=== PATIENT | male | born 1945 | race Caucasian/White ===

== ENCOUNTER 2017-07-20 09:34 | Day surgery (SDC) | payer MEDICARE, SELFPAY ==
[2017-07-20] VITALS (7 sets, daily range): BP systolic 95–127; BP diastolic 51–72; PULSE 62–80; RESP 16–20; TEMP 36.2–36.6; O2SAT 98–100; BMI 25.1
--- NOTE | 2017-07-20 11:05 | COLBX_PTH ---
PATIENT: TRENTON ALVAREZ LOC: EN U#:[id number] AGE/SX: 72/M ROOM: RE07/20/[address]: Dr. Chris Franks MD : 1945 BED: DIS: 07/20/2017 SPEC #: [id number] RECD: 07/20/17 12:15 STATUS: MORRO LEODAN #: [id number] TRICIA: 07/20/17 11:[address]: Chris Franks DEPT: SURGICAL PATHOLOGY RECD BY: Booker Mclaughlin ENTERED: 07/20/17 12:45 SP TYPE: COLON BX OTHR DR: Dr. Isabella Palma MD Tissues: Transverse colon Procedures: Surgery Specimen Level IV HEADER OPERATION: Colonoscopy PRE-OP DIAGNOSIS: Rectal hemorrhage TISSUE SUBMITTED: Proximal transverse biopsy MICROSCOPIC DIAGNOSIS Proximal transverse colon, biopsy: Hyperplastic polyp. SJ:jie 07/21/17 MICROSCOPIC DESCRIPTION Slides are reviewed. GROSS DESCRIPTION Received in fixative is one container labeled with the patient's name and designated proximal transverse biopsy. The specimen consists of multiple irregular fragments of light saldana soft tissue that in aggregate measure 0.5 x 0.5 x 0.1 cm. The specimen is totally submitted in one cassette. / SJ:jie 07/20/17 TC:1 CPT: 48676
--- NOTE | 2017-07-20 11:41 | PCM.OPRPT ---
Problem List (1) Epigastric pain Status: Acute (2) History of gastroesophageal reflux (GERD) Status: Chronic (3) Rectal bleeding Status: Acute Report of Operation Date of Procedure: 07/20/17 Pre-Operative Diagnosis: Epigastric pain, rectal bleeding, history of gastroesophageal reflux disease Post-Operative Diagnosis: Same Surgery/Procedure Performed:: 91109 esophagogastroduodenoscopy. 24217 colonoscopy with biopsy Type of Anesthesia:: MAC Anesthesiologist: Brooks Bosch Description of Procedure: Patient was brought into the endoscopy unit. Back of his throat was sprayed with Cetacaine spray. A bite-block was placed. He was placed in the left lateral decubitus position. Graded anesthesia was given. The scope was inserted in the back of the oropharynx and directed down through the esophagus into the stomach and into the duodenum without difficulty operative findings: 1. Duodenum: Normal appearance no mass lesions no ulcerations no bleeding. 2. Stomach: Normal appearance no mass lesions no ulcerations 3. Esophagus: I read previously where he had an esophagogastroduodenoscopy with biopsy at the distal esophagus my scope was able to traverse this without any difficulty and I did not feel that there was a need to do a dilatation at this time. I took numerous pictures the mucosal all look normal it was slightly friable when I went through it but the scope easily traversed at numerous times. The scope was then inserted into the rectum and directed through the sigmoid colon, descending colon, transverse colon, ascending colon, to the cecum. Operative findings: 1. Cecum: Normal appearance no mass lesions normal ileocecal valve. 2. Ascending colon: Normal appearance no mass lesions. 3. Transverse colon and the proximal transverse colon there was a very sessile polyp which I did not feel comfortable trying to remove I injected the area with Ann ink I biopsied it and then marked with a metal clip so that I could get a x-ray of his abdomen when I was done. 4. Descending colon: Normal appearance no mass lesions. 5. Sigmoid colon: Normal appearance no mass lesions scattered diverticuli were identified 6. Rectum: Normal appearance no mass lesions retroflexion did show some internal hemorrhoids it did look like they had been actively bleeding. The scope was withdrawn digital rectal exam was performed showing no masses within the anus and a smooth prostate with no nodules. I am going to obtain an abdominal x-ray on the patient. If the biopsy results are benign and probably going to send him off to have injection of saline and shaving the biopsy of this sessile polyp it was malignant then we will plan for a surgical resection. - Admit VTE Documentation VTE Present on Admission: No VTE Mechan Device Prophylaxis: None VTE Pharm Prophylaxis ordered?: No Reason prophylaxis not ordered:: Treatment Not Indicated
--- NOTE | 2017-07-20 12:25 | RAD_ITS ---
STUDY: X-RAY - ABDOMEN/PELVIS REASON FOR EXAM: Male, 72 years old. A 30 day clip was placed in transverse colon. Abdominal distention. TECHNIQUE: AP supine and upright views of the abdomen and pelvis. COMPARISON: None. FINDINGS: There is a surgical clip at the level of the hepatic flexure of the large bowel. There is only mild gaseous distention of the large bowel. There is no significant stool burden. In the upright views there are several air-fluid levels in the ascending colon. The small bowel is largely decompressed with only minimal gas, no distention and no apparent air-fluid levels. No free air. Multilevel lumbar degenerative disc disease with mild scoliosis. Right total breast plasty. RAD/Abd Inc Decub and/or Erect IMPRESSION: Multiple stacked air-fluid levels in the ascending colon proximal to the surgical clip. This likely reflects stasis. The stasis may be functional. Dysmotility/ileus. There is only small amount of gas in the distal large bowel and there is no significant stool burden. There is no visible mechanical obstruction. The small bowel is unremarkable. There is no specific evidence of bowel perforation. No visible free air. Electronically Signed: Booker Finn, at 13:11 EDT Tel , Service support ,
== END 2017-07-20 12:01 | disposition home or self-care (01) ==
LOC: EN 09:35 → AC 09:37
PROVIDERS: Family Provider Internal Medicine; PCP Internal Medicine; Visit Provider Surgery
PROC: 0DJD8ZZ Inspection of Lower Intestinal Tract, Via Natural or Artificial Opening Endoscopic (ICD-10-PCS; CPT 45378; principal; 2017-07-20 10:55)
DX: K63.5 Polyp of colon (principal); K64.8 Other hemorrhoids; K21.9 Gastro-esophageal reflux disease without esophagitis; D64.9 Anemia, unspecified; M1A.9XX0 Chronic gout, unspecified, without tophus (tophi); M54.5 Low back pain; G89.29 Other chronic pain; Z85.828 Personal history of other malignant neoplasm of skin; Z86.010 Personal history of colon polyps; Z79.899 Other long term (current) drug therapy
CPT/HCPCS: 43235; 45380; 45381; 74019; 88305; J7120; A4648

== ENCOUNTER 2017-10-23 09:57 | Day surgery (SDC) | payer MEDICARE, SELFPAY ==
--- NOTE | 2017-10-23 | COLBX_PTH ---
PATIENT: TRENTON ALVAREZ LOC: EN U#:[id number] AGE/SX: 72/M ROOM: RE10/23/[address]: Dr. Chris Franks MD : 1945 BED: DIS: 10/23/2017 SPEC #: [id number] RECD: 10/23/17 14:32 STATUS: MORRO LEODAN #: [id number] TRICIA: 10/23/17 00:[address]: Chris Franks DEPT: SURGICAL PATHOLOGY RECD BY: Carson Dimas ENTERED: 10/23/17 14:33 SP TYPE: COLON BX OTHR DR: Dr. Isabella Palma MD Tissues: A - COLON BIOPSY B - Sigmoid colon biopsy Procedures: Surgery Specimen Level IV HEADER OPERATION: Colonoscopy (MAC) PRE-OP DIAGNOSIS: History of polyp TISSUE SUBMITTED: A - Hepatic flexure polyp, B ? Sigmoid polyp biopsy MICROSCOPIC DIAGNOSIS A. Colon polyp at hepatic flexure, biopsy: Fragments of tubular adenoma. B. Sigmoid colon polyp, biopsy: Fragments of tubular adenoma. AM:riley 10/26/17 MICROSCOPIC DESCRIPTION Slides are reviewed. GROSS DESCRIPTION A - Received is one container labeled with the patient name and designated splenic flexure polyp. The specimen consists of multiple irregular fragments of light saldana soft tissue that in aggregate measure 0.5 x 0.3 x 0.1 cm. The specimen is totally submitted in one cassette. B - Received is one container labeled with the patient name and designated sigmoid polyp biopsy. The specimen consists of multiple irregular fragments of light saldana soft tissue that in aggregate measure 0.6 x 0.6 x 0.1 cm. The specimen is totally submitted in one cassette. /AM:riley 10/23/17 TC: 5 CPT: 24125 x2
[2017-10-23 10:32] VITALS: BP 110/65; PULSE 65; RESP 16; TEMP 36.6; O2SAT 100; BMI 24.5
--- NOTE | 2017-10-23 12:24 | PCM.OPRPT ---
Problem List (1) Hyperplastic polyp of transverse colon Status: Acute Report of Operation Date of Procedure: 10/23/17 Pre-Operative Diagnosis: k63.5 hyperplastic polyp of the transverse colon at the hepatic flexure Post-Operative Diagnosis: Same Surgery/Procedure Performed:: Colonoscopy with ERBY elevation of hyperplastic polyp and snare polypectomy Type of Anesthesia:: MAC Description of Procedure: Patient was brought into the operating room and placed in the supine position. Under excellent MAC anesthetic the colonoscope was inserted into the rectum and directed through the sigmoid colon, descending colon, transverse colon, descending colon, to the cecum. As I withdrew the scope I came to the area the hepatic flexure where I had injected ink which was still present and I was able to identify a hyperplastic polyp I was quite surprised how small it had gotten since the last time I biopsied it. I used the early device injected saline into the subcutaneous tissues. I placed the snare cautery around this area and removed entirely and in the process nearly ablated the tissue completely. I was surprised that there was another hyperplastic polyp right near this 1 that I actually did not see the first time. I removed it with biopsy forceps. As I withdrew the scope I came to the sigmoid colon where I found another hyperplastic polyp and I ablated this with biopsy forceps. The rest of the colon appeared normal there was no new lesions identified other than what is been dictated above. The patient tolerated the procedure well. He will need another colonoscopy in 3 years. - Admit VTE Documentation VTE Present on Admission: No VTE Mechan Device Prophylaxis: None VTE Pharm Prophylaxis ordered?: No Reason prophylaxis not ordered:: Treatment Not Indicated
[2017-10-23 12:26] VITALS: BP 110/65; BP 97/54; PULSE 68; RESP 16; TEMP 36.3; O2SAT 100
[2017-10-23 12:30] VITALS: BP 101/43; BP 110/65; PULSE 63; RESP 16; O2SAT 100
[2017-10-23 12:35] VITALS: BP 100/55; BP 110/65; PULSE 62; RESP 18; O2SAT 100
[2017-10-23 12:41] VITALS: BP 106/44; BP 110/65; PULSE 62; RESP 16; TEMP 37; O2SAT 100
[2017-10-23 13:10] VITALS: BP 110/65
== END 2017-10-23 13:08 | disposition home or self-care (01) ==
LOC: EN 09:57 → AC 09:58
PROVIDERS: Family Provider Internal Medicine; PCP Internal Medicine; Visit Provider Surgery
PROC: 0DJD8ZZ Inspection of Lower Intestinal Tract, Via Natural or Artificial Opening Endoscopic (ICD-10-PCS; CPT 45378; principal; 2017-10-23 10:55)
DX: D12.3 Benign neoplasm of transverse colon (principal); D12.5 Benign neoplasm of sigmoid colon; M10.9 Gout, unspecified; K21.9 Gastro-esophageal reflux disease without esophagitis; D64.9 Anemia, unspecified; Z85.828 Personal history of other malignant neoplasm of skin; Z79.899 Other long term (current) drug therapy
CPT/HCPCS: 45380; 88305; J7120; A4216; J1610

== ENCOUNTER 2018-02-07 08:35 | Inpatient (IN) | payer MEDICARE, SELFPAY ==
[2018-02-07] VITALS (8 sets, daily range): BP systolic 126–152; BP diastolic 60–81; PULSE 76–119; RESP 16–17; TEMP 36.4–37.2; O2SAT 96–100; BMI 24.9; BMI 24.7; BMI 24.8
--- NOTE | 2018-02-07 08:49 | CT_ITS ---
STUDY: CT ABDOMEN AND PELVIS WITHOUT CONTRAST REASON FOR EXAM: Male, 72 years old. Abdominal pain, nausea and vomiting RADIATION DOSAGE (If Supplied By Facility): CTDIvol = ( 13.14 ) mGy, DLP = ( 699.51 ) mGycm TECHNIQUE: Transaxial images were obtained from the dome of the diaphragm to the symphysis pubis without oral contrast, and without intravenous contrast. Sagittal and coronal images were reconstructed. Individualized dose optimization techniques were used for this CT. COMPARISON: None. FINDINGS: The visualized lung bases are unremarkable. The visualized portions of the heart are within normal limits. Normal liver. Normal gallbladder and extrahepatic biliary system. Normal spleen. There is subtle enlargement of the head of the pancreas. Additionally, the head of the pancreas is poorly defined and there is subtle peripancreatic inflammation. A mass in the head of the pancreas cannot be excluded and further evaluation recommended with MRI or CT with IV contrast. Normal bilateral adrenal glands. No obstructive uropathy, nonobstructing right nephrolithiasis noted. Normal visualized stomach. Normal small intestine. There are multiple colonic diverticula consistent with diverticulosis. There is non-visualization of the appendix. Normal abdominal aorta. Normal inferior vena cava. Normal retroperitoneum. Normal urinary bladder. Normal abdominal wall. There are diffuse degenerative changes of the visualized lumbar spine. Replaced right hip free of complication. CT/Abdomen/Pelvis without Cont IMPRESSION: There is subtle amorphous enlargement of the head of the pancreas with peripancreatic inflammation. An underlying mass needs to be excluded. Recommend further evaluation with MRI or CT with IV contrast. Nonobstructing right nephrolithiasis Degenerative bony changes Electronically Signed: Shivam Ricardo MD at 9:47 EST , Service support ,
--- NOTE | 2018-02-07 08:51 | ED.DCSUM_ITS ---
- ER Visit Summary Date of Service: 02/07/18 Chief Complaint: Abdominal pain, dark/bloody stools History of Present Illness: The patient is a 72 M who has had 3 days of the above symptoms. He describes a dull achy pain in the epigastric region. It radiates down to the rest of the abdomen. Nothing makes it better or worse. He has felt nauseous and has had vomiting as well. He has had black stools mixed in with some bright red blood. He denies any urinary symptoms. He had 2 colonoscopies earlier this year because of dark stools. A polyp was removed from the hepatic flexure but there was no signs of any bleeding or sources of bleeding at that time. He also had an EGD which did not show any sources of bleeding. This was done by Dr. Franks. He does not take any blood thinning medications. Physical Examination: Vital signs reviewed. HEENT exam unremarkable. Heart is tachycardic and regular rhythm without murmurs. Lungs are clear to auscultation. Abdomen is soft and nontender. Extremities reveal no edema. Skin exam normal. Neurologic exam normal. Test Results: Hemoglobin is 10 which is around baseline. Sodium 135, lipase 880. CAT scan without contrast reveals peripancreatic inflammation with a questionable mass. Emergency Department Course and Treatment: Patient does admit to drinking 6-712 ounce beers a day. This could be causing his elevated lipase and pancreatitis. CAT scan also shows a questionable mass with peripancreatic inflammation. He may require further imaging to evaluate this. This was discussed with hospitalist for admission. Treatment Plan: [] Disposition: Admit Impression: Acute pancreatitis This note was generated with [employer] dictation software. It may contain incorrect words, spelling, and punctuation that were not noted in review of the chart prior to signing ED Disposition - Plan for ED Patient: Chief Complaint: Abd Pain Referrals: Isabella Palma MD [Primary Care Provider] -
[2018-02-07] MEDS: 0.9% Normal Saline 1,000 ML 1000 ML IV (09:14)
[2018-02-07] MEDS: Ondansetron 4 MG/2 ML Vial IV ×2 (09:14→14:49)
[2018-02-07 09:23] LABS: Absolute Lymphocyte Count 2.19 X10^3/ul (0.83-4.51); Absolute Neutrophil Count 6.7 X10^3/uL (2.0-7.7); Basophil# 0.01 X10^3/uL; Basophil% 0.1 % (0-1); Lymphocyte # 2.19 X10^3/ul (4.0); Lymphocyte % 22.3 % (19-41); Mean Corp Hgb Conc 31.3 g/gl (32-36); Mean Corpuscular Volume 83.3 fL (80-94); Mean Platelet Vol. 9.6 fl (6.2-12.0); Monocyte# 0.89 X10^3/uL; Monocyte% 9.1 % (0-10); Neutrophil # 6.69 X10^3/uL (2.7-7.7); Neutrophil % 68.3 % (47-70); Platelet Count 187 K/mm3 (150-450); RBC Distribution Width CV 20.4 % (11.6-14.6); RBC Distribution Width SD 62.1 fl (35.1-43.9); Red Blood Count 3.84 M/mm3 (4.6-6.2); White Blood Count 9.8 K/mm3 (4.4-11.0)
[2018-02-07 09:24] LABS: Differential Indicated SCAN CRITERIA MET; POSITIVE COUNT NO; POSITIVE DIFFERENTIAL NO; POSITIVE MORPHOLOGY YES
[2018-02-07 09:31] LABS: Anisocytosis 2+; Differential Comment SCANNED; Macrocytosis 1+; Microcytosis 1+
[2018-02-07 09:37] LABS: AST(SGOT) 14 U/L (15-37); Alanine Aminotransfer ALT/SGPT 14 U/L (16-61); Albumin, Serum 3.3 g/dL (3.2-5.0); Alkaline Phosphatase 53 U/L (45-117); Anion Gap 9 (5-15); BUN 16 mg/dL (7-18); BUN/Creat Ratio 27.1 RATIO (10-20); Bilirubin, Direct 0.16 mg/dL (0.00-0.30); Calcium,Total 8.5 mg/dL (8.5-10.1); Chloride 103 mmol/L (98-107); Creatinine, Serum 0.59 mg/dL (0.70-1.30); EST Glomerular Filtration Rate 144 mL/min (>60); Est Glom Filt Rate - Afr Amer 174 mL/min (>60); Estimated Creatinine Clearance 82.15 ml/min; Globulin 3.6 g/dL (2.2-4.2); Glucose 126 mg/dL (74-106); Lipase 880 U/L (73-393); Potassium 3.8 mmol/L (3.5-5.1); Protein, Total 6.9 g/dL (6.4-8.2); Sodium Level 135 mmol/L (136-145)
--- NOTE | 2018-02-07 10:08 | HP.PCM_ITS ---
Problem List (1) Pancreatitis Status: Acute Qualifiers: Chronicity: acute Pancreatitis type: unspecified pancreatitis type Acute pancreatitis complication: unspecified Qualified Code(s): K85.90 - Acute pancreatitis without necrosis or infection, unspecified (2) GI bleed Status: Suspected Qualifiers: GI bleed type/associated pathology: unspecified gastrointestinal hemorrhage type Qualified Code(s): K92.2 - Gastrointestinal hemorrhage, unspecified (3) Tobacco use Status: Chronic (4) History of colon polyps Status: Chronic (5) History of GI bleed Status: Chronic (6) Chronic gout Status: Chronic Qualifiers: Gout site: unspecified site (7) History of gastroesophageal reflux (GERD) Status: Chronic (8) History of alcohol abuse Status: Chronic History of Present Illness Date of Admission: 02/07/18 Chief Complaint: Abdominal pain/N/V The patient is a 72 y/o M w/ PMHx: EtOH Abuse (6-7, 12 ounce beers daily), History of GI bleed w/ Polyps w/ recent c-scope x 2 over past year, GERD, Smokeless Tobacco use, History of Esophageal Strictures, Gout who presents to the [facility] ED on 02/07/18 with history of 3 day history of worsening epigastric abdominal pain, described as dull, aching in nature, 10/10 with associated nausea, emesis, poor intake as well as loose stools noted to be dark appearing with history of prior dark stools with additionally noted streaks BRB. In the ED work-up included T 97.6, heart rate initially 119--> 77 following hydration, BP 136/74, respiratory rate 17, 100% room air, CBC with W BC 9.8, hemoglobin 9.7, platelet 27 without shift, CMP with sodium 135, glucose 126, lipase 880, CT A/P w/ subtle amorphous enlargement of the head of the pancreas with peripancreatic inflammation, ? underlying mass needs to be excluded. In the ED patient spearer IV Zofran, IV fluids. Past Medical History Past Medical History (Chronic Problems): Chronic Problems (Last Reviewed 11/04/17 @ 13:30 by Kristen Harris) Tobacco use (Chronic) History of colon polyps (Chronic) History of GI bleed (Chronic) Chronic gout (Chronic) History of alcohol abuse (Chronic) History of gastroesophageal reflux (GERD) (Chronic) Medical History: Medical History (Last Reviewed 11/04/17 @ 13:30 by Kristen Harris) Lower GI bleed (Acute) K92.2 History of colon polyps (Chronic) Z86.010 History of GI bleed (Chronic) Z87.19 Chronic gout (Chronic) [id number] History of alcohol abuse (Chronic) Z87.898 History of gastroesophageal reflux (GERD) (Chronic) Z87.19 Bilateral cataracts H26.9 Allergies No Known Allergies Allergy (Verified 02/07/18 08:36) Home Medications: Ambulatory Orders Medication Instructions Recorded Allopurinol 100 mg PO DAILY 06/22/16 Pantoprazole Sodium [Protonix] 40 mg PO DAILY #30 tab 06/23/16 fluticasone 50 mcg/actuation nasal 1 spray INTRANASAL QDAY PRN 07/10/17 spray,suspension Banophen 1 tab PO PRN PRN 07/14/17 Ferrous Sulfate 325 mg PO DAILY 07/14/17 Rutin/Hesp/Bioflav/C/Quovmc679 1 ea PO DAILY 07/14/17 [Bioflex Tablet] Surgical History: Surgical History (Last Updated 11/04/17 @ 13:31 by Kristen Harris) History of esophagogastroduodenoscopy (EGD) Onset Date: ~06/2017 Z98.890 Hx of colonoscopy Z98.890 2016 Hx of esophagogastroduodenoscopy Z98.890 2016 Previous back surgery Z98.890 S/P colonoscopy Onset Date: ~06/2017 Z98.890 S/P colonoscopy Onset Date: ~10/23/17 Z98.890 Status post right hip replacement Z96.641 Surgical History: - - Lumbar back surgery, status post right total hip replacement, esophageal stricture dilation, several endoscopies with polypectomies. Psychiatric History: No pertinent psych hx Lives: Spouse/ Significant Other Smoking Status: Never smoker Tobacco Use: - - Ongoing smokeless tobacco usage. Alcohol: Heavy - 7-9 12 ounce beers daily. Drugs: None - *Family History Paternal Family History: Family History (Last Reviewed 11/04/17 @ 13:30 by Kristen Harris) Mother Colon cancer Father Cancer History Items: Cancer Maternal Family History: Family History (Last Reviewed 11/04/17 @ 13:30 by Kristen Harris) Mother Colon cancer Father Cancer History Items: Cancer Review of Systems Constitutional: Reports: Anorexia, Malaise, Weakness, Fatigue. Denies: Chills, Fever, Weight Change HEENT: Denies: Head Aches, Sinus Congestion, Sinus Drainage Cardiovascular: Denies: Chest Pain, Palpitations Respiratory: Denies: Cough, Shortness of breath at rest, Sputum production Gastrointestinal: Reports: Abdominal Pain, Diarrhea - Loose stool., Nausea, Vomiting Genitourinary: Denies: Dysuria Musculoskeletal: Reports: Back Pain. Denies: Joint Pain, Joint Tenderness Skin: Denies: Rash, Wounds Neurological: Denies: Numbness, Tingling, Focal weakness Psychiatric: Denies: Anxiety, Depression, Homicidal Ideations, Suicidal Ideations Hematologic/ Lymphatic: Reports: Anemia. Denies: Easy Bruising, Easy Bleeding VTE Information - Inpt Only VTE Present on Admission: No VTE Mechan Device Prophylaxis: SCD's VTE Pharm Prophylaxis ordered?: No Reason prophylaxis not ordered:: Medical Contraindication Patient Problems: Active and Suspected Problems (Last Reviewed 11/04/17 @ 13:30 by Kristen Harris) Pancreatitis (Acute) GI bleed (Suspected) Subjective: Seated upright in the bed, fatigued appearance, notes pain mildly improved, lessened nausea since initial ED presentation. Objective: Physical Examination: General: awake, alert, oriented x 3 and cooperative, seated upright in the bed, notes feeling improved since initial ED presentation, less nausea, still some discomfort but primarily with palpation. Skin: normal color, turgor, no icterus, cyanosis. HEENT: AT/NC, EOMI, PERRLA, mildly dry MM, no carotid bruits or JVD noted. Lungs: Diminished breath sounds, greater bilateral bases, moderate effort, no rales, ronchi or wheezing. Heart: Regular rate and rhythm; no gallop, rub audible. Abdomen: soft, epigastric tenderness to palpation, ND, normal BS, + HM of the difficult given abdominal discomfort with examination. Extremities: no cyanosis, clubbing, or edema. Neurological: patient awake, alert, oriented x 3; cognitive function intact; pupils equally reactive to light and accomodation; cranial nerves II-XII grossly normal, moving all 4 extremities, no focal deficits, strength mildly to moderately globally decreased. Psychiatric: affect appears normal, no acute evidence of depressive or anxiety feelings. - Physical Exam Vital Signs Temp Pulse Resp BP Pulse Ox 97.6 F L 119 H 17 136/74 H 100 02/07/18 08:36 02/07/18 08:36 02/07/18 08:36 02/07/18 08:36 02/07/18 08:36 Oxygen Delivery Method Room Air Weight: 199 lb 4.766 oz Body Mass Index (BMI) 24.9 Laboratory Tests Past 24 Hrs 02/07/18 02/07/18 02/07/18 09:10 09:10 09:10 WBC 9.8 RBC 3.84 L Hgb 10.0 L Hct 32.0 L MCV 83.3 MCH 26.0 L MCHC 31.3 L RDW 20.4 H RDW Differential 62.1 H Plt Count 187 MPV 9.6 Immature Gran % (Auto) 0.200 Neut % (Auto) 68.3 Lymph % (Auto) 22.3 [place] % (Auto) 9.1 Eos % (Auto) 0.0 Baso % (Auto) 0.1 Absolute Neuts (auto) 6.7 Absolute Lymphs (auto) 2.19 Total Counted Not Reportable Differential Comment SCANNED Anisocytosis 2+ Microcytosis 1+ Macrocytosis 1+ Sodium 135 L Potassium 3.8 Chloride 103 Carbon Dioxide 23.0 Anion Gap 9 BUN 16 Creatinine 0.59 L Estim Creat Clear Calc 82.15 Est GFR (MDRD) Af Amer 174 Est GFR (MDRD) Non-Af 144 BUN/Creatinine Ratio 27.1 H Glucose 126 H Calcium 8.5 Total Bilirubin 0.50 Direct Bilirubin 0.16 AST 14 L ALT 14 L Alkaline Phosphatase 53 Total Protein 6.9 Albumin 3.3 Globulin 3.6 Lipase 880 H Blood Type Pending Antibody Screen Pending Assessment/Plan All Active Problems (Last Reviewed 11/04/17 @ 13:30 by Kristen Harris) Pancreatitis (Acute) Hyperplastic polyp of transverse colon (Acute) Epigastric pain (Acute) Rectal bleeding (Acute) Lower GI bleed (Acute) The patient is a 72 y/o M w/ PMHx: EtOH Abuse (6-7, 12 ounce beers daily), History of GI bleed w/ Polyps w/ recent c-scope x 2 over past year, GERD, Smokeless Tobacco use, History of Esophageal Strictures, Gout who presents to the [facility] ED on 02/07/18 with history of 3 day history of worsening epigastric abdominal pain, described as dull, aching in nature, 12/09 with associated nausea, emesis, poor intake as well as loose stools noted to be dark appearing with history of prior dark stools with additionally noted streaks BRB. (1) Acute pancreatitis w/ abdominal pain, N/V secondary to Acute Pancreatitis, ? Pancreatic Mass and possible concurrent GI Bleed w/ Chronic Normocytic Anemia: Likely secondary to his EtOH Abuse but noted CT A/P w/ subtle amorphous enlargement of the head of the pancreas with peripancreatic inflammation, ? underlying mass needs to be excluded. Will admit to MS, maintain on IVFs, NPO, IV PPI, IV/po pain control, trend lipase, CMP, obtain MRI Abd w/ and without contrast to further evaluate possible pancreatic mass, obtain AM FLP, EtOH consumption risk as primary etiology for pancreatitis; however, noting dark stools, ? GI bleed, may need to consider upper endoscopy as may also present w/ upper GI ulcers, had 2 c-scopes this year alone for stools changes. Will cycle HH q 6 x 3 with repeat CBC in AM, T+S performed per ED, hgb stable and similar to baseline. Dr. Franks consulted. (2) ? Acute GI Bleed w/ Chronic Normocytic Anemia, Fe Deficiency Anemia, Currently Hgb stable baseline: Patient w/ black appear stools for the last several days, has had similar prior, c-scope x 2 w/ polyps, EtOH abuse, admission Hgb 10, baseline 9-11 range, will maintain on IVFs, obtain serial H+H q 6 hours w/ repeat CBC in AM, T+S w/ cross for PRBC administration if appropriate. Will maintain on IV PPI. GI consulted, Dr. Franks as noted. (3) EtOH Abuse: Patient notes routine consumption of 6-7 12 ounce beers per day. Will initiate and continue on taper course of librium to avoid withdrawal, as needed Seroquel, Catapres, Bentyl, Vistaril, IV fluids, IV antiemetics, Tylenol as needed for pain. Mag, phos pending. Maintain on CIWA protocol. CM consulted for EtOH abuse, but given age likely will not discontinue. (4) Smokeless Tobacco: Encouraged cessation, inpatient consultation per RT, NR if desired. (5) GERD: IV PPI as noted. (6) DVT Prophylaxis: SCDs, defer chemoprophylaxis given acute presentation. Code Visit Inpatient E&M: 98409 Init Hosp L3
[2018-02-07 11:17] LABS: Magnesium 1.6 mg/dL (1.6-2.6); Phosphorus 2.5 mg/dL (2.5-4.9)
[2018-02-07 11:33] LABS: Hematocrit 31.7 % (40-54); Hemoglobin 9.7 g/dl (13.0-16.5)
[2018-02-07] MEDS: Lactated Ringers 1,000 ML 125 ML IV (11:50)
[2018-02-07] MEDS: 0.9% NaCl Peripheral Flush Adult/Peds IV ×3 (12:03→21:08)
[2018-02-07] MEDS: chlordiazePOXIDE 25 MG Capsule PO ×2 (12:04→18:00)
[2018-02-07] MEDS: hydrOXYzine PAM 25 MG Capsule 50 MG PO (14:49)
[2018-02-07 17:49] LABS: Hematocrit 33.5 % (40-54); Hemoglobin 10.3 g/dl (13.0-16.5)
--- NOTE | 2018-02-07 20:47 | NURSING ---
Called William GARVIN at home to check on outstanding LR @ 150 cc/hr that was hanging out on APR. He reported that pt came up from ER with a bag of LR @ 125 cc/hr and order was quickly changed to 150 cc/hr. He used that bag that was hanging to complete the 1L @ 150 cc/hr so he did not have to hang the additional bag.
[2018-02-07 23:11] LABS: Hematocrit 30.6 % (40-54); Hemoglobin 9.4 g/dl (13.0-16.5)
[2018-02-08] VITALS (14 sets, daily range): BP systolic 95–149; BP diastolic 66–88; PULSE 70–134; RESP 16–18; TEMP 36.4–37.3; O2SAT 95–100
[2018-02-08] MEDS: chlordiazePOXIDE 25 MG Capsule PO ×4 (00:20→21:05)
[2018-02-08] MEDS: 0.9% NaCl Peripheral Flush Adult/Peds IV ×4 (00:21→17:11)
[2018-02-08 06:20] LABS: Absolute Lymphocyte Count 2.14 X10^3/ul (0.83-4.51); Absolute Neutrophil Count 3.9 X10^3/uL (2.0-7.7); Basophil# 0.02 X10^3/uL; Basophil% 0.3 % (0-1); Eosinophil# 0.03 X10^3/uL; Eosinophils% 0.4 % (0-5); Hematocrit 30.9 % (40-54); Hemoglobin 9.4 g/dl (13.0-16.5); Lymphocyte # 2.14 X10^3/ul (4.0); Lymphocyte % 31.1 % (19-41); Mean Corp Hgb Conc 30.4 g/gl (32-36); Mean Corpuscular Hgb 26.3 pg (27.0-32.0); Mean Corpuscular Volume 86.3 fL (80-94); Mean Platelet Vol. 11.2 fl (6.2-12.0); Monocyte# 0.81 X10^3/uL; Monocyte% 11.8 % (0-10); Neutrophil # 3.87 X10^3/uL (2.7-7.7); Neutrophil % 56.3 % (47-70); Platelet Count 166 K/mm3 (150-450); RBC Distribution Width CV 21.1 % (11.6-14.6); RBC Distribution Width SD 64.6 fl (35.1-43.9); Red Blood Count 3.58 M/mm3 (4.6-6.2); White Blood Count 6.9 K/mm3 (4.4-11.0)
[2018-02-08 06:26] LABS: Differential Indicated SCAN CRITERIA MET; POSITIVE COUNT NO; POSITIVE DIFFERENTIAL NO; POSITIVE MORPHOLOGY YES
[2018-02-08 06:37] LABS: ALB/GLOB Ratio 0.8 RATIO (0.9-2.4); AST(SGOT) 14 U/L (15-37); Alanine Aminotransfer ALT/SGPT 13 U/L (16-61); Albumin, Serum 2.9 g/dL (3.2-5.0); Alkaline Phosphatase 47 U/L (45-117); Anion Gap 7 (5-15); BUN 12 mg/dL (7-18); BUN/Creat Ratio 20.9 RATIO (10-20); Calcium,Total 8.3 mg/dL (8.5-10.1); Chloride 105 mmol/L (98-107); Cholesterol 134 mg/dL (200); Creatinine, Serum 0.57 mg/dL (0.70-1.30); EST Glomerular Filtration Rate 149 mL/min (>60); Est Glom Filt Rate - Afr Amer 180 mL/min (>60); Estimated Creatinine Clearance 82.15 ml/min; Globulin 3.6 g/dL (2.2-4.2); Glucose 95 mg/dL (74-106); High Density Lipoprotein 53 mg/dL; Lipase 717 U/L (73-393); Potassium 3.9 mmol/L (3.5-5.1); Protein, Total 6.5 g/dL (6.4-8.2); Sodium Level 137 mmol/L (136-145); Triglycerides 55 mg/dL; Very Low Density Lipoprotein 11 mg/dL (5-40)
[2018-02-08 07:03] LABS: Anisocytosis 1+; Differential Comment SCAN
[2018-02-08 07:04] LABS: Hypochromasia 1+; Microcytosis 1+; Polychromasia 1+
--- NOTE | 2018-02-08 07:22 | MRI_ITS ---
STUDY: MRI ABDOMEN WITH AND WITHOUT CONTRAST REASON FOR EXAM: Male, 72 years old. Pancreatic mass TECHNIQUE: Standardized fat and water weighted pulse sequences were obtained in all 3 orthogonal planes post contrast administration. 10 ml of Gadavist contrast material was administered intravenously for the contrast portion of the examination. COMPARISON: None. FINDINGS: This study is limited by patient motion. The visualized lung bases are unremarkable. The visualized portions of the heart are within normal limits. Normal liver. Normal gallbladder and extrahepatic biliary system. Normal spleen. There is stranding adjacent to the pancreatic head with an adjacent 3.3 x 2.9 cm complex multiseptated cystic mass. This does not enhance following contrast administration and likely represents pancreatitis with an associated a pseudocyst. Normal bilateral adrenal glands. Normal right kidney. Normal left kidney. Normal visualized stomach. Normal small intestine. Normal colon. The appendix is visualized and appears normal. Normal abdominal aorta. Normal inferior vena cava. Normal retroperitoneum. Normal abdominal wall. Normal osseous structures. MRI/MRI Abd WITH and W/O Contrast IMPRESSION: Study limited by patient motion. Stranding adjacent to the pancreatic head with an adjacent 3.3 x 2.9 cm complex multiseptated cystic mass. This does not enhance following contrast administration and likely represents pancreatitis with an associated pseudocyst. A follow-up pancreatic protocol CT or MRI is recommended in 3-6 months to assess for resolution and exclude an underlying mass. Electronically Signed: Kenny Keller, at 18:02 EST Tel , Service support ,
[2018-02-08] MEDS: Ondansetron 4 MG/2 ML Vial IV (08:55)
--- NOTE | 2018-02-08 09:47 | PCM.PN.HOSP ---
Patient Problems: Active and Suspected Problems (Last Reviewed 11/04/17 @ 13:30 by Kristen Harris) Pancreatitis (Acute) GI bleed (Suspected) Subjective: Patient was seen and examined. Waiting on MRI of the pancreas. Complaint of nausea this morning, medicated. Denied any more bleeding per rectum. Last episode was about 3 days ago. Denied abdominal pain no dizziness or palpitations or chest pain. Vitals/I&O's: Vital Signs Temp Pulse Resp BP Pulse Ox 98.4 F 92 18 149/88 H 97 02/08/18 08:55 02/08/18 08:55 02/08/18 08:55 02/08/18 08:55 02/08/18 08:55 Oxygen Delivery Method Room Air Weight: 89.9 kg Body Mass Index (BMI) 24.7 Intake and Output for Last 24 Hours 02/06/18 02/07/18 02/08/18 23:59 23:59 23:59 Intake Total 1300 / 1300 Output Total 750 / 750 Balance 550 / 550 General: Alert, Oriented x3, Cooperative, No apparent distress HEENT: Atraumatic, PERRLA, EOMI, Normocephalic Oral: Dry Mucosa - mildly dehydrated Neck: Supple, No JVD, Negative Carotid Bruits Lungs: Clear to auscultation, Normal air movement Cardiovascular: Regular rate, Regular Rhythm, Normal S1, Normal S2, No murmurs Abdomen: Bowel Sounds Present, Soft, Non Tender, No Hepato-splenomegaly, Tender - Slight epigastric and right upper quadrant tenderness Extremities: No edema Skin: No rashes, No breakdown Musculoskeletal: No Tenderness to Palpation of Joints or Extremities Lymphatic: No Cervical, Supraclavicular, or Inguinal Adenopathy Neurological: Cranial nerves II-XII grossly intact, Neuro grossly intact Psych/Mental Status: Normal Affect, Appropriate Laboratory Results 02/07/18 09:10: Blood Type A POSITIVE, Antibody Screen NEGATIVE 02/07/18 09:10: Phosphorus 2.5, Magnesium 1.6 02/07/18 11:16: Hgb 9.7 L, Hct 31.7 L 02/07/18 17:36: Hgb 10.3 L, Hct 33.5 L 02/07/18 23:02: Hgb 9.4 L, Hct 30.6 L 02/08/18 05:33: WBC 6.9, RBC 3.58 L, Hgb 9.4 L, Hct 30.9 L, MCV 86.3, MCH 26.3 L, MCHC 30.4 L, RDW 21.1 H, RDW Differential 64.6 H, Plt Count 166, MPV 11.2, Immature Gran % (Auto) 0.100, Neut % (Auto) 56.3, Lymph % (Auto) 31.1, [place] % (Auto) 11.8 H, Eos % (Auto) 0.4, Baso % (Auto) 0.3, Absolute Neuts (auto) 3.9, Absolute Lymphs (auto) 2.14, Total Counted Not Reportable, Differential Comment SCAN, Polychromasia 1+, Hypochromasia 1+, Anisocytosis 1+, Microcytosis 1+ 02/08/18 05:33: Sodium 137, Potassium 3.9, Chloride 105, Carbon Dioxide 25.0, Anion Gap 7, BUN 12, Creatinine 0.57 L, Estim Creat Clear Calc 82.15, Est GFR (MDRD) Af Amer 180, Est GFR (MDRD) Non-Af 149, BUN/Creatinine Ratio 20.9 H, Glucose 95, Calcium 8.3 L, Total Bilirubin 0.50, AST 14 L, ALT 13 L, Alkaline Phosphatase 47, Total Protein 6.5, Albumin 2.9 L, Globulin 3.6, Albumin/Globulin Ratio 0.8 L, Triglycerides 55, Cholesterol 134, LDL Cholesterol 70, VLDL Cholesterol 11, HDL Cholesterol 53, Lipase 717 H Current Medications Acetaminophen (Tylenol) 500 mg PO Q4H PRN PRN PRN Reason: Temp > 100.4 F Hydrocodone Bitart/Acetaminophen ([place] 5mg-325mg) 1 - 2 tablet PO Q6H PRN PRN PRN Reason: Moderate-severe pain Allopurinol (Zyloprim) 100 mg PO DAILY@0800 [facility] Last Admin: 02/08/18 08:56 Dose: Not Given Chlordiazepoxide (Librium) 50 mg PO Q8H [facility]; Taper Stop: 02/10/18 13:59 Last Admin: 02/08/18 05:56 Dose: 50 mg Dicyclomine HCl (Bentyl) 20 mg PO Q6H PRN PRN PRN Reason: abdominal discomfort Ferrous Sulfate (Ferrous Sulfate) 325 mg PO DAILY@0800 [facility] Last Admin: 02/08/18 08:56 Dose: Not Given Folic Acid (Folic Acid) [facility] Last Admin: 02/08/18 08:56 Dose: Not Given Hydralazine HCl (Apresoline Iv) 10 mg IV Q4H PRN PRN PRN Reason: SBP > 160 Hydroxyzine Pamoate (Vistaril Pamoate Capsule) 50 mg PO Q6H PRN PRN PRN Reason: Mild Anxiety (score 1/3) Last Admin: 02/07/18 14:49 Dose: 50 mg Pantoprazole Sodium 40 mg/ (Sodium Chloride) 110 mls @ 330 mls/hr IV Q12 [facility] Last Admin: 02/08/18 08:55 Dose: 330 mls/hr Lorazepam (Ativan) 2 mg PO Q2H PRN PRN; Protocol PRN Reason: CIWA score > 8 but <15 Lorazepam (Ativan) 2 mg PO UD PRN; Protocol PRN Reason: CIWA score >/=15. Lorazepam (Ativan) 2 mg IV Q2H PRN PRN; Protocol PRN Reason: CIWA score > 8 but <15 Lorazepam (Ativan) 2 mg IV UD PRN; Protocol PRN Reason: CIWA score >/=15. Lorazepam (Ativan) 1 mg IV Q4H PRN PRN PRN Reason: Severe Anxiety Lorazepam (Ativan) 2 mg IV X1 PRN PRN Reason: Seizure Magnesium Hydroxide (Milk Of Magnesia) 30 ml PO DAILY PRN PRN PRN Reason: Constipation Morphine Sulfate () 1 - 2 mg IV Q4H PRN PRN PRN Reason: PAIN Multivitamins/Minerals (Multivitamin With Minerals) [facility] Last Admin: 02/08/18 08:56 Dose: Not Given Ondansetron HCl (Zofran) 4 mg IV Q8H PRN PRN PRN Reason: NAUSEA Last Admin: 02/08/18 08:55 Dose: 4 mg Promethazine HCl (Phenergan) 12.5 mg IV Q6H PRN PRN PRN Reason: NAUSEA/VOMITING Sodium Chloride () 5 - 15 ml IV UD PRN PRN Reason: SALINE FLUSH Last Admin: 02/08/18 08:55 Dose: 10 ml Thiamine HCl (Vitamin B1) [facility] Last Admin: 12/10/18 08:56 Dose: Not Given Trazodone HCl (Desyrel) 50 mg PO QHS [facility] Last Admin: 02/08/18 00:32 Dose: Not Given Medical Necessity - Tobacco Use Smoking Status: Never smoker Tobacco Use: - - Ongoing smokeless tobacco usage. Assessment/Plan All Active Problems (Last Reviewed 11/04/17 @ 13:30 by Kristen Harris) Pancreatitis (Acute) Hyperplastic polyp of transverse colon (Acute) Epigastric pain (Acute) Rectal bleeding (Acute) Lower GI bleed (Acute) 72-year-old male with past medical history of alcohol abuse, history of GI bleeds with polyps seen on colonoscopy, GERD comes in with complaints of epigastric pain and dark tarry stools. Patient was admitted and CT scan of the abdomen showed possible pancreatic mass with peripancreatic inflammation and has since been managed as acute pancreatitis. 1. Acute pancreatitis, being managed symptomatically, kept n.p.o., serum lipase slightly improved, will continue on conservative management. 2. Possible pancreatic mass, going for MRI of the abdomen, follow-up on results 3. Acute GI bleed likely lower, history of polyps on recent colonoscopy, Dr. Franks consulted, hemoglobin has been stable, will continue on IV PPI 4. Alcohol dependence, on withdrawal protocol, continue to monitor 5. GERD, on PPI 6. DVT PPx- SCDs on account of GI bleed. Code Visit Inpatient E&M: 33483 Subs Hosp L2
--- NOTE | 2018-02-08 09:53 | PN_ITS ---
Patient Problems: Active and Suspected Problems (Last Reviewed 11/04/17 @ 13:30 by Kristen Harris) Pancreatitis (Acute) GI bleed (Suspected) Subjective: Patient was seen and examined. Waiting on MRI of the pancreas. Complaint of nausea this morning, medicated. Denied any more bleeding per rectum. Last episode was about 3 days ago. Denied abdominal pain no dizziness or palpitations or chest pain. Vitals/I&O's: Vital Signs Temp Pulse Resp BP Pulse Ox 98.4 F 92 18 149/88 H 97 02/08/18 08:55 02/08/18 08:55 02/08/18 08:55 02/08/18 08:55 02/08/18 08:55 Oxygen Delivery Method Room Air Weight: 89.9 kg Body Mass Index (BMI) 24.7 Intake and Output for Last 24 Hours 02/06/18 02/07/18 02/08/18 23:59 23:59 23:59 Intake Total 1300 / 1300 Output Total 750 / 750 Balance 550 / 550 General: Alert, Oriented x3, Cooperative, No apparent distress HEENT: Atraumatic, PERRLA, EOMI, Normocephalic Oral: Dry Mucosa - mildly dehydrated Neck: Supple, No JVD, Negative Carotid Bruits Lungs: Clear to auscultation, Normal air movement Cardiovascular: Regular rate, Regular Rhythm, Normal S1, Normal S2, No murmurs Abdomen: Bowel Sounds Present, Soft, Non Tender, No Hepato-splenomegaly, Tender - Slight epigastric and right upper quadrant tenderness Extremities: No edema Skin: No rashes, No breakdown Musculoskeletal: No Tenderness to Palpation of Joints or Extremities Lymphatic: No Cervical, Supraclavicular, or Inguinal Adenopathy Neurological: Cranial nerves II-XII grossly intact, Neuro grossly intact Psych/Mental Status: Normal Affect, Appropriate Laboratory Results 02/07/18 09:10: Blood Type A POSITIVE, Antibody Screen NEGATIVE 02/07/18 09:10: Phosphorus 2.5, Magnesium 1.6 02/07/18 11:16: Hgb 9.7 L, Hct 31.7 L 02/07/18 17:36: Hgb 10.3 L, Hct 33.5 L 02/07/18 23:02: Hgb 9.4 L, Hct 30.6 L 02/08/18 05:33: WBC 6.9, RBC 3.58 L, Hgb 9.4 L, Hct 30.9 L, MCV 86.3, MCH 26.3 L , MCHC 30.4 L, RDW 21.1 H, RDW Differential 64.6 H, Plt Count 166, MPV 11.2, Immature Gran % (Auto) 0.100, Neut % (Auto) 56.3, Lymph % (Auto) 31.1, [place] % (Auto) 11.8 H, Eos % (Auto) 0.4, Baso % (Auto) 0.3, Absolute Neuts (auto) 3.9, Absolute Lymphs (auto) 2.14, Total Counted Not Reportable, Differential Comment SCAN, Polychromasia 1+, Hypochromasia 1+, Anisocytosis 1+, Microcytosis 1+ 02/08/18 05:33: Sodium 137, Potassium 3.9, Chloride 105, Carbon Dioxide 25.0, Anion Gap 7, BUN 12, Creatinine 0.57 L, Estim Creat Clear Calc 82.15, Est GFR (MDRD) Af Amer 180, Est GFR (MDRD) Non-Af 149, BUN/Creatinine Ratio 20.9 H, Glucose 95, Calcium 8.3 L, Total Bilirubin 0.50, AST 14 L, ALT 13 L, Alkaline Phosphatase 47, Total Protein 6.5, Albumin 2.9 L, Globulin 3.6, Albumin/Globulin Ratio 0.8 L, Triglycerides 55, Cholesterol 134, LDL Cholesterol 70, VLDL Cholesterol 11, HDL Cholesterol 53, Lipase 717 H Current Medications Acetaminophen (Tylenol) 500 mg PO Q4H PRN PRN PRN Reason: Temp > 100.4 F Hydrocodone Bitart/Acetaminophen ([place] 5mg-325mg) 1 - 2 tablet PO Q6H PRN PRN PRN Reason: Moderate-severe pain Allopurinol (Zyloprim) 100 mg PO DAILY@0800 [facility] Last Admin: 02/08/18 08:56 Dose: Not Given Chlordiazepoxide (Librium) 50 mg PO Q8H [facility]; Taper Stop: 02/10/18 13:59 Last Admin: 02/08/18 05:56 Dose: 50 mg Dicyclomine HCl (Bentyl) 20 mg PO Q6H PRN PRN PRN Reason: abdominal discomfort Ferrous Sulfate (Ferrous Sulfate) 325 mg PO DAILY@0800 [facility] Last Admin: 02/08/18 08:56 Dose: Not Given Folic [facility] (F[facility] Acid) [facility] Last Admin: 02/08/18 08:56 Dose: Not Given Hydralazine HCl (Apresoline Iv) 10 mg IV Q4H PRN PRN PRN Reason: SBP > 160 Hydroxyzine Pamoate (Vistaril Pamoate Capsule) 50 mg PO Q6H PRN PRN PRN Reason: Mild Anxiety (score 1/3) Last Admin: 02/07/18 14:49 Dose: 50 mg Pantoprazole Sodium 40 mg/ (Sodium Chloride) 110 mls @ 330 mls/hr IV Q12 [facility] Last Admin: 02/08/18 08:55 Dose: 330 mls/hr Lorazepam (Ativan) 2 mg PO Q2H PRN PRN; Protocol PRN Reason: CIWA score > 8 but <15 Lorazepam (Ativan) 2 mg PO UD PRN; Protocol PRN Reason: CIWA score >/=15. Lorazepam (Ativan) 2 mg IV Q2H PRN PRN; Protocol PRN Reason: CIWA score > 8 but <15 Lorazepam (Ativan) 2 mg IV UD PRN; Protocol PRN Reason: CIWA score >/=15. Lorazepam (Ativan) 1 mg IV Q4H PRN PRN PRN Reason: Severe Anxiety Lorazepam (Ativan) 2 mg IV X1 PRN PRN Reason: Seizure Magnesium Hydroxide (Milk Of Magnesia) 30 ml PO DAILY PRN PRN PRN Reason: Constipation Morphine Sulfate () 1 - 2 mg IV Q4H PRN PRN PRN Reason: PAIN Multivitamins/Minerals (Multivitamin With Minerals) [facility] Last Admin: 02/08/18 08:56 Dose: Not Given Ondansetron HCl (Zofran) 4 mg IV Q8H PRN PRN PRN Reason: NAUSEA Last Admin: 02/08/18 08:55 Dose: 4 mg Promethazine HCl (Phenergan) 12.5 mg IV Q6H PRN PRN PRN Reason: NAUSEA/VOMITING Sodium Chloride () 5 - 15 ml IV UD PRN PRN Reason: SALINE FLUSH Last Admin: 02/08/18 08:55 Dose: 10 ml Thiamine HCl (Vitamin B1) [facility] Last Admin: 12/10/18 08:56 Dose: Not Given Trazodone HCl (Desyrel) 50 mg PO QHS [facility] Last Admin: 02/08/18 00:32 Dose: Not Given Medical Necessity - Tobacco Use Smoking Status: Never smoker Tobacco Use: - - Ongoing smokeless tobacco usage. Assessment/Plan All Active Problems (Last Reviewed 11/04/17 @ 13:30 by Kristen Harris) Pancreatitis (Acute) Hyperplastic polyp of transverse colon (Acute) Epigastric pain (Acute) Rectal bleeding (Acute) Lower GI bleed (Acute) 72-year-old male with past medical history of alcohol abuse, history of GI bleeds with polyps seen on colonoscopy, GERD comes in with complaints of epigastric pain and dark tarry stools. Patient was admitted and CT scan of the abdomen showed possible pancreatic mass with peripancreatic inflammation and has since been managed as acute pancreatitis. 1. Acute pancreatitis, being managed symptomatically, kept n.p.o., serum lipase slightly improved, will continue on conservative management. 2. Possible pancreatic mass, going for MRI of the abdomen, follow-up on results 3. Acute GI bleed likely lower, history of polyps on recent colonoscopy, Dr. Franks consulted, hemoglobin has been stable, will continue on IV PPI 4. Alcohol dependence, on withdrawal protocol, continue to monitor 5. GERD, on PPI 6. DVT PPx- SCDs on account of GI bleed. Code Visit Inpatient E&M: 44658 Subs Hosp L2
--- NOTE | 2018-02-08 10:45 | CASEMGMT ---
BHARATHI JIM Face to Face with patient for initial transition planning/care coordination assessment. RN CM introduced self and role at [facility]. Patient lying in bed, alert and oriented. Patient willing to participate in assessment and is able to answer all questions appropriately. Care providers, pharmacy, and demographics verified. Patient wishes to discharge home, denies need for home health at this time. Patient states he has no further needs or concerns at this time. CM to follow for discharge planning needs that may arise. PCP: Louie Specialists: [facility] Pharmacy: [facility] Insurance: A[employer]na [facility] Prescription Benefit: Aetna MCR Living Will/HPOA: No LNOK: Living Arrangements: Patient lives with in 2 story home with bed and bath on first floor, patient independent Transportation: Self/ DME/HHC: Patient has raised toilet, denies further needs Disposition Plan: Patient to discharge home with family support and follow-up plans in place. Karly JONESN, RN, CM
[2018-02-08] MEDS: 0.9% Normal Saline 1,000 ML 75 ML IV (13:20)
--- NOTE | 2018-02-08 15:57 | CASEMGMT ---
Social Work Note SW received referral for substance abuse. Per H+P, pt drinks 6-7 12oz beers daily. SW attempted to see pt but pt currently off floor. SW will follow up with pt tomorrow in regards to substance abuse. Karly Sheppard SLEEP SCIENTIST, HAND SCUDDER
--- NOTE | 2018-02-08 16:12 | PCM.CONS.GEN ---
Problem List (1) Pancreatitis Status: Acute Qualifiers: Chronicity: acute Pancreatitis type: unspecified pancreatitis type Acute pancreatitis complication: unspecified Qualified Code(s): K85.90 - Acute pancreatitis without necrosis or infection, unspecified Reason for Consult Date of Consultation: 02/08/18 History of Present Illness: The patient is a 72 y/o M w/ PMHx: EtOH Abuse (6-7, 12 ounce beers daily), History of GI bleed w/ Polyps w/ recent c-scope x 2 over past year, GERD, Smokeless Tobacco use, History of Esophageal Strictures, Gout who presents to the [facility] ED on 02/07/18 with history of 3 day history of worsening epigastric abdominal pain, described as dull, aching in nature, 12/09 with associated nausea, emesis, poor intake as well as loose stools noted to be dark appearing with history of prior dark stools with additionally noted streaks BRB. In the ED work-up included T 97.6, heart rate initially 119--> 77 following hydration, BP 136/74, respiratory rate 17, 100% room air, CBC with W BC 9.8, hemoglobin 9.7, platelet 27 without shift, CMP with sodium 135, glucose 126, lipase 880, CT A/P w/ subtle amorphous enlargement of the head of the pancreas with peripancreatic inflammation, ? underlying mass needs to be excluded. In the ED patient translator/interpreter IV Zofran, IV fluids. His pain has significantly improved over the night. He is not having any further black tarry stools. An MRI of the pancreas has been done but it has not been read as of yet. I did an upper scope on him earlier this year. He had had a history of needing to have his distal esophagus dilated but the scope easily traversed it and I did not feel it was necessary at that time. Past Medical History Past Medical History (Chronic Problems): Chronic Problems (Last Reviewed 02/08/18 @ 16:14 by Chris Franks MD) Tobacco use (Chronic) History of colon polyps (Chronic) History of GI bleed (Chronic) Chronic gout (Chronic) History of alcohol abuse (Chronic) History of gastroesophageal reflux (GERD) (Chronic) Medical History: Medical History (Last Reviewed 02/08/18 @ 16:14 by Chris Franks MD) Lower GI bleed (Acute) K92.2 History of colon polyps (Chronic) Z86.010 History of GI bleed (Chronic) Z87.19 Chronic gout (Chronic) [id number] History of alcohol abuse (Chronic) Z87.898 History of gastroesophageal reflux (GERD) (Chronic) Z87.19 Bilateral cataracts H26.9 Allergies No Known Allergies Allergy (Verified 02/07/18 08:36) Home Medications: Ambulatory Orders Medication Instructions Recorded Allopurinol 100 mg PO DAILY 06/22/16 Pantoprazole Sodium [Protonix] 40 mg PO DAILY #30 tab 06/23/16 fluticasone 50 mcg/actuation nasal 1 spray INTRANASAL QDAY PRN 07/10/17 spray,suspension Banophen 1 tab PO PRN PRN 07/14/17 Ferrous Sulfate 325 mg PO DAILY 07/14/17 [place]/Hesp/Bioflav/C/[id number] 1 ea PO DAILY 07/14/17 [Bioflex Tablet] Surgical History: Surgical History (Last Reviewed 02/08/18 @ 16:14 by Chris Franks MD) History of esophagogastroduodenoscopy (EGD) Onset Date: ~06/2017 Z98.890 Hx of colonoscopy Z98.890 2016 Hx of esophagogastroduodenoscopy Z98.890 2016 Previous back surgery Z98.890 S/P colonoscopy Onset Date: ~06/2017 Z98.890 S/P colonoscopy Onset Date: ~10/23/17 Z98.890 Status post right hip replacement Z96.641 Surgical History: - - Lumbar back surgery, status post right total hip replacement, esophageal stricture dilation, several endoscopies with polypectomies. Psychiatric History: No pertinent psych hx Lives: Spouse/ Significant Other Smoking Status: Never smoker Tobacco Use: - - Ongoing smokeless tobacco usage. Alcohol: Heavy - 7-9 12 ounce beers daily. Drugs: None - *Family History Paternal Family History: Family History (Last Reviewed 11/04/17 @ 13:30 by Kristen Harris) Mother Colon cancer Father Cancer History Items: Cancer Maternal Family History: Family History (Last Reviewed 11/04/17 @ 13:30 by Kristen Harris) Mother Colon cancer Father Cancer History Items: Cancer Review of Systems Constitutional: Denies: Chills, Fever, Weight Change Cardiovascular: Denies: Chest Pain, Chest Pressure, Chest Tightness, Palpitations Respiratory: Denies: Cough, Hemoptysis, Shortness of breath at rest, Shortness of breath upon exertion, Wheezing Gastrointestinal: Reports: Abdominal Pain, Melena Patient Problems: Active and Suspected Problems (Last Reviewed 02/08/18 @ 16:14 by Chris Franks MD) Pancreatitis (Acute) GI bleed (Suspected) - Physical Exam General: Alert, Oriented x3 Lungs: Clear to auscultation Cardiovascular: Regular rate, Regular Rhythm, No murmurs Abdomen: Bowel Sounds Present, Soft, Non Tender, Non-Distended Extremities: No clubbing, No cyanosis, No edema Skin: No rashes, No breakdown Vital Signs Temp Pulse Resp BP Pulse Ox 97.6 F L 86 18 122/71 H 96 02/08/18 13:10 02/08/18 13:10 02/08/18 13:10 02/08/18 13:10 02/08/18 13:10 Oxygen Delivery Method Room Air Weight: 198 lb 3.129 oz Body Mass Index (BMI) 24.7 Intake and Output for Last 24 Hours 02/06/18 02/07/18 02/08/18 23:59 23:59 23:59 Intake Total 1360 / 1360 Output Total 750 / 750 Balance 610 / 610 Laboratory Tests Past 24 Hrs 02/07/18 02/07/18 02/08/18 17:36 23:02 05:33 WBC 6.9 RBC 3.58 L Hgb 10.3 L 9.4 L 9.4 L Hct 33.5 L 30.6 L 30.9 L MCV 86.3 MCH 26.3 L MCHC 30.4 L RDW 21.1 H RDW Differential 64.6 H Plt Count 166 MPV 11.2 Immature Gran % (Auto) 0.100 Neut % (Auto) 56.3 Lymph % (Auto) 31.1 [place] % (Auto) 11.8 H Eos % (Auto) 0.4 Baso % (Auto) 0.3 Absolute Neuts (auto) 3.9 Absolute Lymphs (auto) 2.14 Total Counted Not Reportable Differential Comment SCAN Polychromasia 1+ Hypochromasia 1+ Anisocytosis 1+ Microcytosis 1+ Sodium Potassium Chloride Carbon Dioxide Anion Gap BUN Creatinine Estim Creat Clear Calc Est GFR (MDRD) Af Amer Est GFR (MDRD) Non-Af BUN/Creatinine Ratio Glucose Calcium Total Bilirubin AST ALT Alkaline Phosphatase Total Protein Albumin Globulin Albumin/Globulin Ratio Triglycerides Cholesterol LDL Cholesterol VLDL Cholesterol HDL Cholesterol Lipase 02/08/18 05:33 WBC RBC Hgb Hct MCV MCH MCHC RDW RDW Differential Plt Count MPV Immature Gran % (Auto) Neut % (Auto) Lymph % (Auto) [place] % (Auto) Eos % (Auto) Baso % (Auto) Absolute Neuts (auto) Absolute Lymphs (auto) Total Counted Differential Comment Polychromasia Hypochromasia Anisocytosis Microcytosis Sodium 137 Potassium 3.9 Chloride 105 Carbon Dioxide 25.0 Anion Gap 7 BUN 12 Creatinine 0.57 L Estim Creat Clear Calc 82.15 Est GFR (MDRD) Af Amer 180 Est GFR (MDRD) Non-Af 149 BUN/Creatinine Ratio 20.9 H Glucose 95 Calcium 8.3 L Total Bilirubin 0.50 AST 14 L ALT 13 L Alkaline Phosphatase 47 Total Protein 6.5 Albumin 2.9 L Globulin 3.6 Albumin/Globulin Ratio 0.8 L Triglycerides 55 Cholesterol 134 LDL Cholesterol 70 VLDL Cholesterol 11 HDL Cholesterol 53 Lipase 717 H Assessment/Plan All Active Problems (Last Reviewed 02/08/18 @ 16:14 by Chris Franks MD) Pancreatitis (Acute) Hyperplastic polyp of transverse colon (Acute) Epigastric pain (Acute) Rectal bleeding (Acute) Lower GI bleed (Acute) This point I think it is okay to start him on clear liquids. I do not think you need to do an upper scope on him until he have all the information from the MRI back. He may need to have an EGD with ultrasound examination. I think he would also benefit from having a gallbladder ultrasound to see if there is any small stones or sludge within his gallbladder itself. Even though he is a known drinker he said he had not been doing any excessive drinking over this past weekend. The etiology of this pancreatitis is still in question in my mind.
--- NOTE | 2018-02-08 16:21 | US_ITS ---
STUDY: ABDOMINAL ULTRASOUND - RIGHT UPPER QUADRANT REASON FOR VISIT: Male, 72 years old. Abdominal pain TECHNIQUE: Ultrasound evaluation of the right upper quadrant was performed with real-time and static faye-scale imaging. TECHNICAL QUALITY: Adequate. COMPARISON: CT dated 02/07/2018 FINDINGS: Liver: The liver measures 16.5 cm. There is normal echogenicity of the liver. The bile ducts are within normal limits. There is hepatic color flow. The direction of portal flow is hepatopetal. There is no demonstrated mass lesion. Gallbladder: Normal distended gallbladder. The gallbladder wall measures 2 mm. There is a negative sonographic Mendez's sign. There is no pericholecystic fluid. There are no gallstones. Common Bile Duct (C.B.D.): The common bile duct measures 4 mm. Pancreas: There is a 2.2 x 2.1 cm complex cystic lesion adjacent to the head of the pancreas. This corresponds to the findings on the recent CT. Right Kidney: Normal size of the right kidney. The right kidney measures 12.5 cm. Normal renal cortex. There is no demonstrated renal mass or cyst. There is a 4 mm nonobstructing stone in the collecting system of the right kidney. There is no right hydronephrosis. US/Gallbladder IMPRESSION: 2.2 x 2.1 cm complex cystic lesion adjacent to the head of the pancreas which corresponds to the findings on the recent CT. Further evaluation with a pancreatic protocol CT or MRI is recommended. 4 mm nonobstructing right renal stone. Electronically Signed: Kenny Krishna, at 19:18 EST Tel , Service support ,
[2018-02-08] MEDS: traZODone 50 MG Tablet PO (21:05)
[2018-02-09] VITALS (7 sets, daily range): BP systolic 108–119; BP diastolic 52–55; PULSE 69–88; RESP 16–18; TEMP 36.6–36.9; O2SAT 94–99
[2018-02-09] MEDS: 0.9% Normal Saline 1,000 ML 100 ML IV (02:38)
[2018-02-09] MEDS: chlordiazePOXIDE 25 MG Capsule PO (05:58)
[2018-02-09] MEDS: Thiamine Hydrochloride 100 MG Tablet PO (08:04)
[2018-02-09] MEDS: Allopurinol 100 MG Tablet PO (08:04)
[2018-02-09] MEDS: Ferrous Sulfate 325 MG Tablet PO (08:04)
[2018-02-09] MEDS: Folic Acid 1 MG Tablet PO (08:04)
[2018-02-09] MEDS: Multivitamins,Ther W-Minerals Tablet 1 TABLET PO (08:04)
--- NOTE | 2018-02-09 08:53 | PCM.PN.SRG ---
Patient Problems: Active and Suspected Problems (Last Reviewed 02/08/18 @ 16:14 by Chris Franks MD) Pancreatitis (Acute) GI bleed (Suspected) Subjective: Patient evaluated resting comfortably in bed. He denies abdominal pain/discomfort. He denies nausea, vomiting. He is tolerating clear liquids well. He is passing flatus. - Physical Exam General: Alert, Oriented x3, Cooperative Abdomen: Bowel Sounds Present, Soft, Non Tender, Non-Distended Vital Signs Temp Pulse Resp BP Pulse Ox 98.5 F 73 18 119/55 L 99 02/09/18 08:24 02/09/18 08:24 02/09/18 08:24 02/09/18 08:24 02/09/18 08:24 Oxygen Delivery Method Room Air Weight: 198 lb 3.129 oz Body Mass Index (BMI) 24.7 Intake and Output for Last 24 Hours 02/07/18 02/08/18 02/09/18 23:59 23:59 23:59 Intake Total 1697 / 1697 1219 / 1219 Output Total 950 / 950 775 / 775 Balance 747 / 747 444 / 444 Medical Necessity - Tobacco Use Smoking Status: Never smoker Tobacco Use: - - Ongoing smokeless tobacco usage. Assessment/Plan All Active Problems (Last Reviewed 02/08/18 @ 16:14 by Chris Franks MD) Pancreatitis (Acute) Hyperplastic polyp of transverse colon (Acute) Epigastric pain (Acute) Rectal bleeding (Acute) Lower GI bleed (Acute) I am following this patient in conjunction with Dr. 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 Increase diet to full liquids Follow-up with Dr. Franks in 1 week Okay for discharge pending medicine evaluation Will plan for follow-up MRI of the abdomen in 3 months Code Visit Inpatient E&M: 81036 [facility] Hosp L1
--- NOTE | 2018-02-09 09:32 | NURSING ---
DIETARY CALLED AND GIVEN ORDER FOR PT BREAKFAST FOR F.L.
--- NOTE | 2018-02-09 09:40 | DS.PCM_ITS ---
Discharge Date and Diagnosis Date of Admission: 02/07/18 Date of Discharge: 02/09/18 - Primary Discharge Diagnosis Active and Suspected Problems (Last Reviewed 02/08/18 @ 16:14 by Chris Franks MD) Pancreatitis (Acute), unclear etiology GI bleed (Suspected) Possible pancreatic mass Alcohol dependence - Secondary Discharge Diagnosis Chronic Problems (Last Reviewed 02/08/18 @ 16:14 by Chris Franks MD) Tobacco use (Chronic) History of colon polyps (Chronic) History of GI bleed (Chronic) Chronic gout (Chronic) History of alcohol abuse (Chronic) History of gastroesophageal reflux (GERD) (Chronic) Hospital Course and Treatment Imaging Results: Clinical Impression(s) from Imaging Studies Abdomen/Pelvis CT 02/07/18 08:49 IMPRESSION: There is subtle amorphous enlargement of the head of the pancreas with peripancreatic inflammation. An underlying mass needs to be excluded. Recommend further evaluation with MRI or CT with IV contrast. Nonobstructing right nephrolithiasis Degenerative bony changes Electronically Signed: Shivam Ricardo MD at 9:47 EST , Service support , Abdomen MRI 02/08/18 07:22 IMPRESSION: Study limited by patient motion. Stranding adjacent to the pancreatic head with an adjacent 3.3 x 2.9 cm complex multiseptated cystic mass. This does not enhance following contrast administration and likely represents pancreatitis with an associated pseudocyst. A follow-up pancreatic protocol CT or MRI is recommended in 3-6 months to assess for resolution and exclude an underlying mass. Electronically Signed: Kenny Keller, at 18:02 EST Tel , Service support , ADDENDUM: 02/08/18 195 Gallbladder Ultrasound 02/08/18 16:21 IMPRESSION: 2.2 x 2.1 cm complex cystic lesion adjacent to the head of the pancreas which corresponds to the findings on the recent CT. Further evaluation with a pancreatic protocol CT or MRI is recommended. 4 mm nonobstructing right renal stone. Electronically Signed: Kenny Keller, at 19:18 EST Tel , Service support , General surgery Operations: None Procedures: None Summary of Care Provided: 72-year-old male with past medical history of alcohol abuse, history of GI bleeds with polyps seen on recent colonoscopy, GERD comes in with complaints of epigastric pain and dark tarry stools. Patient was admitted and CT scan of the abdomen showed possible pancreatic mass with peripancreatic inflammation. 1. Acute pancreatitis unclear etiology, history of alcohol, ultrasound the gallbladder was negative for gallstones, general surgery consulted, patient improved with symptomatic, conservative care, will follow-up with general surgery in the outpatient.. 2. Possible pancreatic mass, MRI of the abdomen as well as ultrasound of the upper abdomen. Discussed with Dr. Franks, patient to follow-up with team and repeat MRI of the abdomen in 3 months. 3. Acute GI bleed likely lower, history of polyps on recent colonoscopy, Dr. Franks consulted, stable hemoglobin, will follow up with Dr. Franks in the outpatient. 4. Alcohol dependence, stable, no signs of active withdrawal during this admission, advised to quit - Physical Exam General: Alert, Oriented x3, Cooperative, No apparent distress HEENT: Atraumatic, PERRLA, EOMI, Normocephalic Oral: Moist Mucosa Neck: Supple, No JVD, Negative Carotid Bruits Lungs: Clear to auscultation, Normal air movement Cardiovascular: Regular rate, Regular Rhythm, Normal S1, Normal S2, No murmurs Abdomen: Bowel Sounds Present, Soft, Non Tender, Non-Distended, No Hepato- splenomegaly Extremities: No edema Skin: No rashes, No breakdown Musculoskeletal: No Tenderness to Palpation of Joints or Extremities Lymphatic: No Cervical, Supraclavicular, or Inguinal Adenopathy Neurological: Cranial nerves II-XII grossly intact, Neuro grossly intact Psych/Mental Status: Normal Affect, Appropriate Vital Signs Temp Pulse Resp BP Pulse Ox 98.5 F 73 18 119/55 L 99 02/09/18 08:24 02/09/18 08:24 02/09/18 08:24 02/09/18 08:24 02/09/18 08:24 Oxygen Delivery Method Room Air Weight: 89.9 kg Body Mass Index (BMI) 24.7 Intake and Output for Last 24 Hours 02/07/18 02/08/1802/09/18 23:59 23:59 23:59 Intake Total 1697 / 1697 1219 / 1219 Output Total 950 / 950 775 / 775 Balance 747 / 747 444 / 444 Discharge Diet: No Restrictions Discharge Activity: Return to Normal Activity Home Medications: Medications to take at Discharge Allopurinol 100 mg PO DAILY 06/22/16 Pantoprazole Sodium [Protonix] 40 mg PO DAILY #30 tab 06/23/16 fluticasone 50 mcg/actuation nasal spray,suspension 1 spray INTRANASAL QDAY PRN 07/10/17 Banophen 1 tab PO PRN PRN 07/14/17 Ferrous Sulfate 325 mg PO DAILY 07/14/17 Folic Acid 1 mg PO DAILYCM #30 tablet 02/09/18 Thiamine Hydrochloride [Vitamin B1] 100 mg PO DAILYCM #30 tablet 02/09/18 Following Prescrptions Were Given to Patient: Folic Acid 1 mg PO DAILYCM #30 tablet Thiamine Hydrochloride [Vitamin B1] 100 mg PO DAILYCM #30 tablet Primary Care Physician: Isabella Palma MD [Primary Care Provider] - Please follow up with your Primary Care Physician in: within 1-2 weeks of discharge Please Follow Up With: Chris Franks MD When: within 2 weeks Medical Necessity - Tobacco Use Smoking Status: Never smoker Tobacco Use: - - Ongoing smokeless tobacco usage. Meaningful Use Info Meaningful Use Diagnoses (Choose all that apply): None applicable Code Visit Inpatient E&M: 17968 Disch Hosp
--- NOTE | 2018-02-09 09:40 | DCINST_ITS ---
- Discharge Diagnoses Current Active Problems: Current Active and Chronic Problems (Last Reviewed 02/08/18 @ 16:14 by Chris Franks MD) Pancreatitis (Acute) Tobacco use (Chronic) Reason(s) for Visit for Discharge Instructions: Abdominal pain, nausea and vomiting You will use the following diet at home:: Regular Your food should be the consistency of: Regular Your liquids should be the consistency of: Regular/Thin Discharge Activity: Return to Normal Activity Additional Instructions: Call your doctor if you develop worsening abdominal pain. Follow-up with Dr. Franks in 2 weeks. You are advised to quit drinking alcohol Allergies/Adverse Reactions: Allergies No Known Allergies Allergy (Verified 02/07/18 08:36) Medications to take at Discharge Allopurinol 100 mg PO DAILY 06/22/16 Pantoprazole Sodium [Protonix] 40 mg PO DAILY #30 tab 06/23/16 fluticasone 50 mcg/actuation nasal spray,suspension 1 spray INTRANASAL QDAY PRN 07/10/17 Banophen 1 tab PO PRN PRN 07/14/17 Ferrous Sulfate 325 mg PO DAILY 07/14/17 Folic Acid 1 mg PO DAILYCM #30 tablet 02/09/18 Thiamine Hydrochloride [Vitamin B1] 100 mg PO DAILYCM #30 tablet 02/09/18 The following prescriptions were given: Folic Acid 1 mg PO DAILYCM #30 tablet Thiamine Hydrochloride [Vitamin B1] 100 mg PO DAILYCM #30 tablet Primary Care Physician: Isabella Palma MD [Primary Care Provider] - Please follow up with your Primary Care Physician in: within 1-2 weeks of discharge Test Results: Test results from this visit will be discussed in further detail at your follow- up appointment, if applicable. Please Follow Up With: Chris Franks MD When: within 2 weeks Proposed Discharge Date: 02/09/18
--- NOTE | 2018-02-09 11:47 | CASEMGMT ---
Social Work Note SW received referral for substance abuse. SW met with pt. SW introduced self and role at [facility]. Pt is alert and orientated x4. Pt states that he has everything he needs and denied additional needs or concerns. Pt denied MH history. Pt does confirm that he drinks 4-5 light beers 12oz beers a day. Pt denied wanting information on substance abuse or resources for treatment. Karly Sheppard TRANSFUSION NURSE, DATABASE ENGINEER
== END 2018-02-09 14:17 | disposition home or self-care (01) | DRG 439 ==
LOC: ED 08:59 → MS3 13:47
PROVIDERS: Admitting Provider Family Medicine; Emergency Provider Emergency Medicine; Family Provider Internal Medicine; PCP Internal Medicine; Visit Provider Internal Medicine
DX: K85.90 Acute pancreatitis without necrosis or infection, unspecified (principal); K92.2 Gastrointestinal hemorrhage, unspecified; F10.20 Alcohol dependence, uncomplicated; K86.9 Disease of pancreas, unspecified; M1A.9XX0 Chronic gout, unspecified, without tophus (tophi); D50.9 Iron deficiency anemia, unspecified; K21.9 Gastro-esophageal reflux disease without esophagitis; Z86.010 Personal history of colon polyps; Z72.0 Tobacco use; Z79.899 Other long term (current) drug therapy
CPT/HCPCS: 36415; 74176; 74183; 76705; 80048; 80053; 80061; 80076; 83690; 83735; 84100; 85014; 85018; 85025; 86850; 86900; 97802; 99284; A9585; J7030; J7050; J7120; A4216; J2405

== ENCOUNTER → 2018-02-24 09:42 | Outpatient (CLI) | payer MEDICARE, SELFPAY ==
[2018-02-24 08:55] VITALS: BMI 24.7
[2018-02-24 10:10] LABS: Hematocrit 26.8 % (40-54); Mean Corp Hgb Conc 29.9 g/gl (32-36); Mean Corpuscular Hgb 24.9 pg (27.0-32.0); Mean Corpuscular Volume 83.5 fL (80-94); Platelet Count 331 K/mm3 (150-450); RBC Distribution Width CV 20.5 % (11.6-14.6); RBC Distribution Width SD 60.9 fl (35.1-43.9); Red Blood Count 3.21 M/mm3 (4.6-6.2); Scan Indicated on CBC? Y/N YES- FLAGS NOTED; White Blood Count 6.8 K/mm3 (4.4-11.0)
[2018-02-24 10:15] LABS: ALB/GLOB Ratio 0.9 RATIO (0.9-2.4); AST(SGOT) 17 U/L (15-37); Alanine Aminotransfer ALT/SGPT 18 U/L (16-61); Albumin, Serum 3.2 g/dL (3.2-5.0); Alkaline Phosphatase 63 U/L (45-117); Anion Gap 7 (5-15); BUN 9 mg/dL (7-18); BUN/Creat Ratio 11.5 RATIO (10-20); Calcium,Total 8.8 mg/dL (8.5-10.1); Chloride 106 mmol/L (98-107); Creatinine, Serum 0.78 mg/dL (0.70-1.30); EST Glomerular Filtration Rate 104 mL/min (>60); Est Glom Filt Rate - Afr Amer 126 mL/min (>60); Globulin 3.6 g/dL (2.2-4.2); Glucose 96 mg/dL (74-106); Lipase 515 U/L (73-393); Potassium 4.3 mmol/L (3.5-5.1); Protein, Total 6.8 g/dL (6.4-8.2); Sodium Level 141 mmol/L (136-145)
== END ==
PROVIDERS: Family Provider Internal Medicine; PCP Internal Medicine; Referring Provider Physician Assistant; Visit Provider Physician Assistant
DX: K86.2 Cyst of pancreas (principal); K85.90 Acute pancreatitis without necrosis or infection, unspecified
CPT/HCPCS: 36415; 80053; 83690; 85027

== ENCOUNTER → 2018-02-25 09:07 | Outpatient (CLI) | payer MEDICARE, SELFPAY ==
[2018-02-24 08:55] VITALS: BMI 24.7
--- NOTE | 2018-02-25 09:09 | CT_ITS ---
STUDY: CT BRAIN WITH AND WITHOUT CONTRAST REASON FOR EXAM: Male, 72 years old. RADIATION DOSAGE (If Supplied By Facility): CTDIvol = ( 44.99 ) mGy, DLP = ( 1682.21 ) mGycm TECHNIQUE: Transaxial CT imaging of the brain was performed pre and post contrast administration. The examination was performed with intravenous administration of 50 ml of Isovue 370 contrast material. Individualized dose optimization techniques were used for this CT. COMPARISON: None. FINDINGS: Normal soft tissue structures. Normal calvarium. Normal size ventricles and extra-axial spaces for the patient's age. Normal white matter tracts of the cerebral hemispheres. Normal basal ganglia and thalami. Normal brainstem. Normal cerebellum. There is no intracranial hemorrhage. There are no findings of an acute ischemic infarction. Normal visualized paranasal sinuses. No abnormal enhancement seen CT/Brain/Head W/WO Contrast IMPRESSION: Normal unenhanced and enhanced CT scan of the brain. Electronically Signed: Jose Ruiz, at 10:43 EST Tel , Service support ,
== END ==
PROVIDERS: Family Provider Internal Medicine; PCP Internal Medicine; Referring Provider Surgery; Visit Provider Surgery
DX: G44.309 Post-traumatic headache, unspecified, not intractable (principal); R40.20 Unspecified coma; S09.90XA Unspecified injury of head, initial encounter
CPT/HCPCS: 70470; Q9967

== ENCOUNTER → 2018-03-04 08:24 | Outpatient (CLI) | payer MEDICARE, SELFPAY ==
[2018-02-24 08:55] VITALS: BMI 24.7
[2018-03-04] VITALS (7 sets, daily range): BP systolic 127–157; BP diastolic 63–96; PULSE 75–116; RESP 15–18; TEMP 36.2–37.3; O2SAT 98–100; BMI 25.0
== END ==
PROVIDERS: Family Provider Internal Medicine; PCP Internal Medicine; Referring Provider Internal Medicine; Visit Provider Internal Medicine
DX: D64.9 Anemia, unspecified (principal)
CPT/HCPCS: 36415; 36430; 86850; 86900; 86920; 86922; J7040; P9016; A4216

== ENCOUNTER → 2018-04-05 09:23 | Outpatient (CLI) | payer MEDICARE, SELFPAY ==
[2018-02-24 08:55] VITALS: BMI 24.7
[2018-03-16 08:11] VITALS: BMI 25.0
--- NOTE | 2018-04-05 09:25 | MRI_ITS ---
STUDY: MRI ABDOMEN WITH AND WITHOUT CONTRAST REASON FOR EXAM: Male, 72 years old. Follow-up pancreatic mass. TECHNIQUE: Standardized fat and water weighted pulse sequences were obtained in all 3 orthogonal planes post contrast administration. 10 ml of Gadavist contrast material was administered intravenously for the contrast portion of the examination. COMPARISON: MRI of the abdomen of 02/08/[address] scan of the abdomen of 02/07/2018. FINDINGS: The visualized lung bases are unremarkable. The visualized portions of the heart are within normal limits. No focal lesion is identified in the liver on this examination. Motion artifacts are seen. Normal gallbladder and extrahepatic biliary system. Normal spleen. The previously noted complex mass medial to the head of the pancreas has decreased in size. It measures now about 2.6 x 2 cm which may represent resolving pseudocyst. Further follow-up exam however is recommended to ensure resolution and to exclude underlying tumor. The adrenal glands are suboptimally visualized but appears to be unremarkable. The visualized portions of the upper poles of the kidneys appear unremarkable. Normal visualized stomach. The small bowel loops are normal in caliber. The colon is not entirely visualized The visualized portions of the aorta demonstrates no evidence of aneurysm. Normal inferior vena cava. Normal retroperitoneum. Normal abdominal wall. The osseous structures are suboptimally evaluated. MRI/MRI Abd WITH and W/O Contrast IMPRESSION: Complex mass in head of pancreas as described above decreased in size since previous examination. Further follow-up exam in 2 months is recommended for further evaluation and to exclude underlying tumor. Electronically Signed: Michael Morris MD at 22:20 EST Tel , Service support ,
[2018-04-05 10:32] LABS: CREATININE FINGERSTICK 0.9 mg/dL (0.70-1.30); EGFR FINGERSTICK > 60.0000 mL/min (>60)
== END ==
PROVIDERS: Family Provider Internal Medicine; PCP Internal Medicine; Referring Provider Physician Assistant; Visit Provider Physician Assistant
DX: K85.90 Acute pancreatitis without necrosis or infection, unspecified (principal); K86.2 Cyst of pancreas
CPT/HCPCS: 74183; A9585; A4216

== ENCOUNTER → 2018-06-10 | Outpatient (CLI) | payer MEDICARE, SELFPAY ==
[2018-04-08 12:49] VITALS: BMI 25.0
--- NOTE | 2018-06-10 06:28 | MRI_ITS ---
STUDY: MRI ABDOMEN WITH AND WITHOUT CONTRAST REASON FOR EXAM: Male, 72 years old. Follow-up for pancreatic mass TECHNIQUE: Standardized fat and water weighted pulse sequences were obtained in all 3 orthogonal planes post contrast administration. 20 IV Dotarem was administered for the contrast portion of the examination. COMPARISON: Abdominal MRI 04/05/2018. FINDINGS: The visualized lung bases are unremarkable. The visualized portions of the heart are within normal limits. Normal liver. Normal gallbladder and extrahepatic biliary system. Normal spleen. Again seen is a complex mass, inseparable from the medial pancreatic head and uncinate process which appears both solid and cystic, this is unchanged in size and appearance since prior exam measuring approximately 2.7 x 3.1 x 4 cm when measured in a similar manner. The solid components appear to enhance most avidly on portal venous phase. There is no pancreatic duct dilatation. Normal bilateral adrenal glands. Normal right kidney. Normal left kidney. Normal visualized stomach. Normal small intestine. Normal colon. The appendix is visualized and appears normal. Normal abdominal aorta. Normal inferior vena cava. Normal retroperitoneum. Normal abdominal wall. There is a stable hemangioma in the L3 vertebral body. There are degenerative changes of the spine. MRI/MRI Abd WITH and W/O Contrast IMPRESSION: Complex solid and cystic mass in the medial pancreatic head and uncinate process is stable in size measuring 2.7 x 3.1 x 4 cm when measured in a similar manner and demonstrates enhancing solid components, neoplasm such as serous cystic neoplasm cannot be excluded. There is no pancreatic duct dilatation or apparent communication with the pancreatic duct. Electronically Signed: Earnest Juárez, at 13:07 EDT Tel , Service support ,
[2018-06-10 06:51] LABS: CREATININE FINGERSTICK 0.9 mg/dL (0.70-1.30); EGFR FINGERSTICK > 60.0000 mL/min (>60)
== END | disposition home or self-care (01) ==
PROVIDERS: Family Provider Internal Medicine; PCP Internal Medicine; Referring Provider Physician Assistant; Visit Provider Physician Assistant
DX: K86.9 Disease of pancreas, unspecified (principal)
CPT/HCPCS: 74183; A9575

== ENCOUNTER → 2018-09-28 | Outpatient (CLI) | payer MEDICARE, SELFPAY ==
[2018-04-08 12:49] VITALS: BMI 25.0
--- NOTE | 2018-09-28 06:28 | MRI_ITS ---
STUDY: MRI ABDOMEN WITH AND WITHOUT CONTRAST REASON FOR EXAM: Male, 73 years old. Pancreatic mass follow-up. TECHNIQUE: Standardized fat and water weighted pulse sequences were obtained in all 3 orthogonal planes post contrast administration. 19 ml of Dotarem contrast material was administered intravenously for the contrast portion of the examination. COMPARISON: MRI abdomen 06/10/2018, 04/05/2018, 02/08/2018, 02/07/2018. CT abdomen and pelvis 2018 FINDINGS: Body wall soft tissues: No acute process. Osseous structures: There is evidence of multilevel lumbar spondylosis including characterized. Mild lumbar scoliosis. Inferior chest: Mild/borderline cardiomegaly. Hepatobiliary: Normal. Spleen: Normal. Adrenal glands: Normal. Urinary tract: Normal. Retroperitoneum: Normal. Vasculature: Normal. Stomach: Normal. Small and large bowel: Normal. Pancreas: There is no significant pancreatic ductal ectasia. The pancreatic body and tail are normal. Along the posterior medial margin of the pancreatic uncinate process and pancreatic head, persistent cystic and solid mass. The greatest dimensions of this process measures 3.37 cm craniocaudal, 2.49 cm transverse, and 2.4 cm anterior-posterior. Within this process, a septated cystlike focus measuring approximately 1.3 cm. Small individual cysts, the largest of which measures approximately 6.5 mm. There is no apparent postcontrast enhancement of this process. The features favor cystic structure superimposed upon underlying background of more normal pancreatic tissue without any apparent solid mass. There is no significant change in the overall size and morphology of this process as compared to prior imaging of 06/10/2018. The process has substantially diminished in overall size compared to prior imaging of 02/08/2019. MRI/MRI Abd WITH and W/O Contrast IMPRESSION: Clustered cystlike process of the pancreatic head/uncinate process is unchanged compared to imaging of 06/10/2018 and has diminished in overall size compared to imaging of 02/07/2018. No enhancing solid components. Differential considerations are broad. Diminished size and conspicuity may favor pseudocyst cyst sequela from prior pancreatitis. Other cystic neoplasm cannot be entirely excluded. Continued surveillance imaging is recommended, typically over 2 years prior to determining benignity. Diminished overall size and conspicuity of this cluster of cysts is favorable. Electronically Signed: Booker Finn MD at 9:22 EDT Tel , Service support ,
[2018-09-28 07:25] LABS: CREATININE FINGERSTICK 0.7 mg/dL (0.70-1.30); EGFR FINGERSTICK > 60.0000 mL/min (>60)
== END | disposition home or self-care (01) ==
PROVIDERS: Family Provider Internal Medicine; PCP Internal Medicine; Referring Provider Surgery; Visit Provider Surgery
DX: K86.89 Other specified diseases of pancreas (principal)
CPT/HCPCS: 74183; A9575

== ENCOUNTER → 2019-03-14 09:54 | Outpatient (CLI) | payer MEDICARE, SELFPAY ==
[2018-10-08 13:44] VITALS: BMI 25.0
--- NOTE | 2019-03-14 09:55 | MRI_ITS ---
STUDY: MRI ABDOMEN WITH AND WITHOUT CONTRAST REASON FOR EXAM: Male, 73 years old. PANCREATIC MASS, recheck, no pain TECHNIQUE: Standardized fat and water weighted pulse sequences were obtained in all 3 orthogonal planes post contrast administration. IV Dotarem 19ml was administered for the contrast portion of the examination. COMPARISON: 09/28/2018 FINDINGS: The visualized lung bases are unremarkable. The visualized portions of the heart are within normal limits. Normal liver. Normal gallbladder and extrahepatic biliary system. Normal spleen. Interval resolution of the cystic mass within the head of the pancreas. Follow-up MRI is recommended in 6 months to document further resolution. Normal bilateral adrenal glands. Normal right kidney. Normal left kidney. Normal visualized stomach. Normal small intestine. Normal colon. There is non-visualization of the appendix. Normal abdominal aorta. Normal inferior vena cava. Normal retroperitoneum. Normal abdominal wall. Normal osseous structures. 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 Follow-up pancreas protocol MRI is recommended in 6 months. Electronically Signed: Booker Palacios MD at 14:35 EST Tel , Service support ,
[2019-03-14 11:01] LABS: CREATININE FINGERSTICK 0.8 mg/dL (0.70-1.30); EGFR FINGERSTICK > 60.0000 mL/min (>60)
== END ==
PROVIDERS: Family Provider Internal Medicine; PCP Internal Medicine; Referring Provider Surgery; Visit Provider Surgery
DX: K86.89 Other specified diseases of pancreas (principal)
CPT/HCPCS: 74183; A9575; A4216

== ENCOUNTER → 2019-09-19 | Outpatient (CLI) | payer MEDICARE, SELFPAY ==
[2019-04-13 08:40] VITALS: BMI 25.0
--- NOTE | 2019-09-19 10:02 | MRI_ITS ---
STUDY: MRI ABDOMEN WITH AND WITHOUT CONTRAST REASON FOR EXAM: Male, 74 years old. pancreatic mass -- recheck, no pain TECHNIQUE: Standardized fat and water weighted pulse sequences were obtained in all 3 orthogonal planes post contrast administration. IV dotarem 19ml was administered for the contrast portion of the examination. COMPARISON: 03/14/2019, 09/28/2018 FINDINGS: The visualized lung bases are unremarkable. The visualized portions of the heart are within normal limits. Normal liver. Normal gallbladder and extrahepatic biliary system. Normal spleen. Again is visualized a 1.0 x 1.4 cm cystic mass of the uncinate process of pancreas without contrast enhancement. Differential diagnosis includes a pancreatic cyst, intraductal papillary mucinous neoplasm, serous cystadenoma, or mucinous cystadenoma/cystadenocarcinoma. Normal bilateral adrenal glands. Normal right kidney. Normal left kidney. Normal visualized stomach. Normal small intestine. Normal colon. The appendix is visualized and appears normal. Normal abdominal aorta. Normal inferior vena cava. Normal retroperitoneum. Normal abdominal wall. Normal osseous structures. MRI/MRI Abd WITH and W/O Contrast IMPRESSION: Recurrent visualization of a 1.0 x 1.4 cm cystic mass of the uncinate process of the pancreas. Follow-up MRI is recommended in 6 months document stability. Electronically Signed: Booker Palacios MD at 10:59 EDT Tel , Service support ,
[2019-09-19 10:45] LABS: CREATININE FINGERSTICK 0.7 mg/dL (0.70-1.30); EGFR FINGERSTICK > 60.0000 mL/min (>60)
== END | disposition home or self-care (01) ==
LOC: MRI 10:02
PROVIDERS: PCP Internal Medicine; Referring Provider Surgery; Visit Provider Surgery
DX: K86.89 Other specified diseases of pancreas (principal)
CPT/HCPCS: 74183; A9575

== ENCOUNTER 2020-05-08 09:57 | Outpatient (RCR) | payer MEDICARE, SELFPAY ==
[2019-09-23 15:56] VITALS: BMI 25.0
[2020-05-08] MEDS: COVID-19 VACC, MRNA(PFIZER)/PF 30 MCG/0.3 ML SYRINGE IM (09:13)
[2020-05-29] MEDS: COVID-19 VACC, MRNA(PFIZER)/PF 30 MCG/0.3 ML SYRINGE IM (08:57)
== END 2020-08-07 23:59 ==
LOC: IMMUN 09:57
PROVIDERS: PCP Internal Medicine; Referring Provider Family Medicine; Visit Provider Family Medicine
DX: Z23 Encounter for immunization (principal)
CPT/HCPCS: 0001A; 0002A; 91300

== ENCOUNTER 2021-08-19 10:52 | Day surgery (SDC) | payer MEDICARE, SELFPAY ==
--- NOTE | 2021-08-19 11:03 | PCM.HP.BLA ---
History and Physical Date of Admission: 08/19/21 HISTORY AND PHYSICAL ? Dylon Feliciano 1945 ? REFERRING PHYSICIAN: Isabella Palma MD ? CHIEF COMPLAINT: Consult (colonoscopy consultation) ? HPI: The patient is a 76 year old male referred for endoscopy. Dylon notes a history of colon polyps and presents to discuss surveillance colonoscopy. Patient denies any change in bowel habits, weight changes, blood in stools, black tarry stools or abdominal pain. NOTES family history of colon issues-mother in her 60s from colon cancer. ? The patient notes no upper GI complaints. He has a past history of esophageal stenosis which had required dilation but denies any dysphagia symptoms at present time. ? Dylon has undergone multiple prior colonoscopies. Most recent colonoscopy performed in September [address] Franks at [facility] with removal of hyperplastic polyp. Repeat colonoscopy was recommended in 3 years. Patient has history of adenomatous polyps on previous endoscopy procedures. ? Patient denies chest pain, shortness of breath or recent hospitalizations. Denies problems with sedation in the past. ? ? PAST MEDICAL HISTORY PAST MEDICAL HISTORY Diagnosis Date ? Acute gastritis ? ? Allergic rhinitis, cause unspecified ? ? Allergic rhinitis ? Degeneration of intervertebral disc, site unspecified ? ? Diaphragmatic hernia without mention of obstruction or gangrene ? ? Diverticulosis of colon (without mention of hemorrhage) ? ? Diverticulosis ? Esophagitis ? ? Gout, unspecified ? ? Personal history of colonic polyps ? ? Colon polyps ? Pure hypercholesterolemia ? ? Resolved--noted that HDL has bee >60 and LDL <130 ? Stricture and stenosis of esophagus ? ? ? PAST SURGICAL HISTORY PAST SURGICAL HISTORY Procedure Laterality Date ? COLONOSCOPY ? 10/23/2017 ? COLONOSCOPY FLX DX W/COLLJ SPEC WHEN PFRMD ? 01/12/2004 ? Colonoscopy ? COLONOSCOPY FLX DX W/COLLJ SPEC WHEN PFRMD ? 10/08/2011 ? Colonoscopy ? COLONOSCOPY FLX DX W/COLLJ SPEC WHEN PFRMD ? 02/27/2016 ? Colonoscopy mac ? EGD TRANSORAL BIOPSY SINGLE/MULTIPLE ? 08/04/2005 ? ESOPHAGOGASTRODUODENOSCOPY TRANSORAL DIAGNOSTIC ? 05/23/2001 ? EGD ? ESOPHAGOGASTRODUODENOSCOPY TRANSORAL DIAGNOSTIC ? 10/08/2011 ? EGD ? ESOPHAGOGASTRODUODENOSCOPY TRANSORAL DIAGNOSTIC ? 11/12/2011 ? EGD ? ESOPHAGOGASTRODUODENOSCOPY TRANSORAL DIAGNOSTIC ? 02/27/2016 ? EGD mac ? PAST SURGICAL HISTORY OF ? ? ? cataract surgeries, 3 weeks apart ? PAST SURGICAL HISTORY OF ? ? ? MOHS right ear ? PAST SURGICAL HISTORY OF ? ? ? right hip, HYACINTH ? PAST SURGICAL HISTORY OF ? ? ? right retinal surgery ? TONSILLECTOMY PRIMARY/SECONDARY <AGE 12 ? ? ? Tonsillectomy ? ? ? CURRENT MEDICATIONS Current Outpatient Medications Medication Sig ? rosuvastatin (CRESTOR) 10 mg tablet Take 1 tablet by mouth daily at bedtime. ? allopurinol (ZYLOPRIM) 100 mg tablet Take 1 tablet by mouth once daily. ? sildenafil (VIAGRA) 100 mg tablet Take 1 tablet by mouth as needed. ? triamcinolone acetonide (KENALOG) 0.1 % cream BID prn at leg/arm apply to affected areas, not face or skin folds. ? pantoprazole DR (PROTONIX) 40 mg tablet Take 1 tablet by mouth once daily. (Patient taking differently: Take 40 mg by mouth three times a week. And increase to daily as needed ) ? ferrous sulfate 325 mg (65 mg iron) tablet Take 1 tablet by mouth twice daily. As tolerated ? fluticasone (FLONASE) 50 mcg/actuation nasal spray Use 1 [place] in each nostril as needed. ? diphenhydramine HCl (BANOPHEN ORAL) Take by mouth as needed. ? No current facility-administered medications for this visit. ? ? ALLERGIES: Seasonal Allergies ? PERSONAL HISTORY: SOCIAL HISTORY Social History ? Tobacco Use ? Smoking status: Never Smoker ? Smokeless tobacco: Current User ? ? Types: Snuff Vaping Use ? Vaping Use: Never used Substance Use Topics ? Alcohol use: Yes ? ? Comment: beer 2 to 3 daily ? Drug use: No ? FAMILY HISTORY: FAMILY HISTORY FAMILY HISTORY Problem Relation Age of Onset ? Colon Cancer Mother ? ? age 69 ? Cancer Father ? ? melanomia age 69 ? ? REVIEW OF SYMPTOMS: The review of systems data was entered by the nurse and reviewed by me ? Nursing Notes: Queta eMssina RN 07/26/2021 8:01 AM Signed REVIEW OF SYSTEMS: General: The patient denies fatigue, denies weight loss, denies weight gain, denies feeling hot, and denies feelings of cold. Eyes: The patient denies glaucoma, NOTES eye injury/surgery, wears glasses or contacts. Ear/Nose/Throat: The patient denies allergies, NOTES hayfever, denies ear infections, and denies bloody noses. Cardiovascular: The patient denies chest pain, denies heart disease, denies high blood pressure,denies cardiac stent, denies prior heart attack, denies irregular heart beat, NOTES high cholesterol, denies poor circulation, denies heart failure, other cardiac issues, denies claudication, denies cold feet, denies peripheral arterial stent. Respiratory: The patient denies tuberculosis, denies pneumonia, denies frequent cough, denies pulmonary embolism, denies shortness of breath, and denies coughing up blood. Gastrointestinal: The patient denies difficulty swallowing, NOTES acid reflux, denies ulcers, denies vomiting, denies jaundice/hepatitis, denies gallbladder problems, denies black or tarry stools, denies hemorrhoids, denies bleeding from rectum, denies diverticulitis, denies constipation, denies diarrhea, denies loss of stool control, and denies hernias. Kidney/Bladder: The patient denies kidney stones, denies urine infections, and denies bloody urine. Skin: The patient denies a history of skin cancer, denies bleeding/changing moles, and denies a history of skin rash. Neurologic: The patient denies a history of epilepsy/convulsions, denies headaches, denies head/spinal injuries, and denies stroke/TIA. Psychiatric: The patient denies psychiatric medications, denies depression, and denies voices, denies substance abuse. Endocrine: The patient denies thyroid disorders, denies diabetes, and denies hormonal problems. Hematologic: The patient denies a history of bruising, denies bleeding, and NOTES anemia, denies blood clots. Infections: The patient denies a history of measles and mumps, denies rheumatic fever, and denies sexually transmitted diseases. Musculoskeletal: The patient denies back pain/injury, NOTES back problems, denies sciatica, denies knee/foot trouble, denies arthritis, or NOTES gout. ? ? When was patient's last Mammogram screening? N/A ? Last Colonoscopy: 10/23/2017 ? Queta Messina RN I have confirmed and edited as necessary, the PFSH and ROS obtained by others. Fadumo Segura PA-C ? PHYSICAL EXAMINATION: ? General: The patient is 76 year old male, well nourished, well hydrated in no acute distress. The patient is oriented to time, place, and person. ? VITALS: Blood pressure 136/70, pulse 111, temperature 36.3 ?C (97.3 ?F), height 190.5 cm (6' 3), weight 93.9 kg (207 lb), SpO2 96 %. Body mass index is 25.87 kg/m?. ? HEENT: Normal cephalic, ataumatic, pupils are equally round, sclera are anicteric, mucous membranes are moist, oropharynx is clear. Neck has no masses, asymmetry or lymphadenopathy. ? Respiratory: Clear to auscultation and percussion. Normal respiratory excursion and pattern. ? Cardiac: Examination is regular rate and rhythm. Normal S1/S2 ? Abdominal exam: Soft, nontender, with no palpable masses. No hepatosplenomegaly. No palpable hernias. ? Extremities: no clubbing, cyanosis or edema. No adenopathy. ? LABORATORY VALUES: As Noted ? RADIOLOGIC STUDIES: As Noted ? ? Assessment IMPRESSION: encounter for surveillance colonoscopy due to history of colon polyps and family history of colon cancer ? PLAN: I have reviewed my findings with the surgeon. Will plan for lower endoscopy. We discussed the risks and benefits of the planned endoscopy. I have informed the patient that complications can occur including failure to complete the endoscopy and perforation. The patient had the opportunity to ask questions concerning the planned endoscopy. My staff has also explained the procedure to the patient in understandable terms and has given the patient printed material concerning the procedure. The patient freely consents to surgery. ? The patient was offered a surgery/procedure at a [facility]. I have counseled the patient regarding the risk of exposure to and/or potential harm posed by the COVID-19 virus with having a surgery/procedure at this time versus the risk of? delaying the surgery/procedure. It is not possible to know either the risk of delaying the surgery or procedure or chance of getting an infection with perfect accuracy, but a joint decision was made between the patient and myself?to proceed at this time with endoscopy. ? ? I plan to use Miralax bowel preparation ? We will plan for Monitored Anesthetic Care. ? ? ? Diagnoses: (Z80.0) Family history of colon cancer (primary encounter diagnosis) (Z12.11) Screening for colon cancer (Z86.010) Personal history of colonic polyps ? Consultation requested by Dr. Palma for an opinion regarding screening colonoscopy. My final recommendations will be communicated back to the requesting physician by way of shared Medical record or letter to requesting physician via US mail. ? Fadumo Segura PA-C I have re-examined the patient. There are no clinical changes since date of exam. Assessment & Plan Assessment/Plan (1) Family history of colon cancer:
[2021-08-19 11:23] VITALS: BP 125/72; PULSE 70; RESP 16; TEMP 36.6; O2SAT 100; BMI 24.7
[2021-08-19] MEDS: Lactated Ringers 1,000 ML 15 ML IV (11:31)
--- NOTE | 2021-08-19 12:00 | COLBX_PTH ---
PATIENT: TRENTON ALVAREZ LOC: EN U#:[id number] AGE/SX: 76/M ROOM: RE08/19/[address]: Dr. Chris Franks MD : 1945 BED: DIS: 08/19/2021 SPEC #: [id number] RECD: 08/19/21 14:07 STATUS: MORRO LEODAN #: [id number] TRICIA: 08/19/21 12:[address]: Chris Franks DEPT: SURGICAL PATHOLOGY RECD BY: Lilli Harmon ENTERED: 08/20/21 06:50 SP TYPE: COLON BX OTHR DR: Dr. Isabella Palma MD Tissues: Sigmoid colon biopsy Procedures: Surgery Specimen Level IV HEADER OPERATION: Colonoscopy with polyp biopsy (MAC) PRE-OP DIAGNOSIS: Family history of colon cancer TISSUE SUBMITTED: Sigmoid colon polyp biopsy MICROSCOPIC DIAGNOSIS Sigmoid colon polyp, biopsy: Granulation with acute and chronic inflammation. See comment. AM:jie 08/21/2021 COMMENT Clinical correlation is suggested. MICROSCOPIC DESCRIPTION Slides are reviewed. GROSS DESCRIPTION Received in fixative is one container labeled with the patient's name and designated sigmoid colon polyp biopsy. The specimen consists of two irregular fragments of light saldana soft tissue that in aggregate measure 0.3 x 0.1 x 0.1 cm. The specimen is totally submitted in one cassette. / SJ:jie 08/20/2021 TC:2 CPT: 91599
[2021-08-19 13:10] VITALS: BP 101/64; BP 125/72; PULSE 67; RESP 18; TEMP 36.7; O2SAT 98
[2021-08-19 13:15] VITALS: BP 105/63; BP 125/72; PULSE 61; RESP 16; O2SAT 96
--- NOTE | 2021-08-19 13:16 | OP.COLON_ITS ---
Patient Name: Dylon Feliciano Procedure Date: 08/19/2021 12:41 PM Date of : 1945 Age: 76 Procedure: Colonoscopy Indications: Screening in patient at increased risk: Family history of 1st-degree relative with colorectal cancer Providers: Chris Franks MD Medicines: See the Anesthesia note for documentation of the administered medications Patient Profile: This is a 76 year old male. Refer to note in patient chart for documentation of history and physical. Last Colonoscopy: 2017. Complications: No immediate complications. Procedure: Pre-Anesthesia Assessment: - Prior to the procedure, a History and Physical was performed, and patient medications and allergies were reviewed. The patient's tolerance of previous anesthesia was also reviewed. The risks and benefits of the procedure and the sedation options and risks were discussed with the patient. All questions were answered, and informed consent was obtained. Prior Anticoagulants: The patient has taken no previous anticoagulant or antiplatelet agents. ASA Grade Assessment: III - A patient with severe systemic disease. After reviewing the risks and benefits, the patient was deemed in satisfactory condition to undergo the procedure. After I obtained informed consent, the scope was passed under direct vision. Throughout the procedure, the patient's blood pressure, pulse, and oxygen saturations were monitored continuously. The adult colonoscope was introduced through the anus and advanced to the cecum, identified by appendiceal orifice and ileocecal valve. The colonoscopy was performed without difficulty. The patient tolerated the procedure well. The quality of the bowel preparation was good. Scope In: 12:50:47 PM Scope Withdrawal Time 0 hours 7 minutes 46 seconds Scope Out: 1:04:59 PM Total Procedure Duration Time 0 hours 14 minutes 12 seconds Findings: The perianal and digital rectal examinations were normal. A small polyp was found in the sigmoid colon. The polyp was sessile. The polyp was removed with a jumbo cold forceps. Resection and retrieval were complete. Non-bleeding internal hemorrhoids were found during retroflexion. The hemorrhoids were mild and small. The entire examined colon appeared normal. Impression: - One small polyp in the sigmoid colon, removed with a jumbo cold forceps. Resected and retrieved. - Non-bleeding internal hemorrhoids. - The entire examined colon is normal. Recommendation: - Patient has a contact number available for emergencies. The signs and symptoms of potential delayed complications were discussed with the patient. Return to normal activities tomorrow. Written discharge instructions were provided to the patient. - Resume previous diet. - Continue present medications. - Await pathology results. - Repeat colonoscopy in 5 years for surveillance. - Return to physician executive assistant in 1 week. Procedure Code(s): --- Professional --- 42798, Colonoscopy, flexible; with biopsy, single or multiple Diagnosis Code(s): --- Professional --- Z80.0, Family history of malignant neoplasm of digestive organs D12.5, Benign neoplasm of sigmoid colon K64.8, Other hemorrhoids CPT copyright 2017 [employer]. All rights reserved. The codes documented in this report are preliminary and upon in home baby sitter review may be revised to meet current compliance requirements. MD Chris Ibrahim MD 08/19/2021 1:16:01 PM This report has been signed electronically. Number of Addenda: 0 Note Initiated On: 08/19/2021 12:41 PM
--- NOTE | 2021-08-19 13:17 | OP.CCLET_ITS ---
08/19/2021 Isabella Palma [address] [place] [address] Re : Colonoscopy procedure for Dylon Feliciano Dear Dr. Palma This procedure was performed on Thursday, August 19, 2021. My impressions and recommendations are as follows: Impressions : - One small polyp in the sigmoid colon, removed with a jumbo cold forceps. Resected and retrieved. - Non-bleeding internal hemorrhoids. - The entire examined colon is normal. Recommendations : - Patient has a contact number available for emergencies. The signs and symptoms of potential delayed complications were discussed with the patient. Return to normal activities tomorrow. Written discharge instructions were provided to the patient. - Resume previous diet. - Continue present medications. - Await pathology results. - Repeat colonoscopy in 5 years for surveillance. - Return to physician assistant food service director in 1 week. My findings are described in the full procedure note, which is enclosed. If I can be of further assistance, please feel free to contact me at Doctor phone number(s): , Work: . Sincerely, MD Chris Ibrahim MD 08/19/2021 1:16:01 PM This report has been signed electronically.
[2021-08-19 13:20] VITALS: BP 109/66; BP 125/72; PULSE 60; RESP 16; O2SAT 95
[2021-08-19 13:25] VITALS: BP 123/64; BP 125/72; PULSE 58; RESP 16; TEMP 36.6; O2SAT 96
[2021-08-19 13:51] VITALS: BP 125/72
== END 2021-08-19 14:00 | disposition home or self-care (01) ==
LOC: EN 10:53 → AC 10:54
PROVIDERS: PCP Internal Medicine; Referring Provider Internal Medicine; Visit Provider Surgery
PROC: 0DJD8ZZ Inspection of Lower Intestinal Tract, Via Natural or Artificial Opening Endoscopic (ICD-10-PCS; CPT 45378; principal; 2021-08-19 11:55)
DX: Z12.11 Encounter for screening for malignant neoplasm of colon (principal); K64.8 Other hemorrhoids; K63.5 Polyp of colon; K21.9 Gastro-esophageal reflux disease without esophagitis; F17.200 Nicotine dependence, unspecified, uncomplicated; Z79.899 Other long term (current) drug therapy; Z86.010 Personal history of colon polyps; Z80.0 Family history of malignant neoplasm of digestive organs
CPT/HCPCS: 45380; 88305; J7120; J2405